=== PATIENT | female | born 1955 | race Caucasian/White ===

== ENCOUNTER 2018-05-11 11:21 | Emergency (ER) | payer MEDICARE, MEDICAID, SELFPAY ==
[2018-05-11 11:23] VITALS: BP 110/65; PULSE 69; RESP 18; TEMP 36.6; O2SAT 98; BMI 25.4
--- NOTE | 2018-05-11 11:42 | NURSING ---
NO LW OR POA
[2018-05-11] MEDS: Morphine 4 MG/ML Syringe IV (12:28)
--- NOTE | 2018-05-11 12:45 | ED.DCSUM_ITS ---
- ER Visit Summary Date of Service: 05/11/18 Chief Complaint: Dental pain History of Present Illness: The patient is a 62 F who sees Jacqui orss and Dr. Hammond. She reports that she went to [facility] approximately 4 days ago and was placed on amoxicillin. States that she has pain in her left maxillary first and second premolars that began 6 days ago. She describes it as an aching pain that is 10 out of 10 at worst and 8 at 10 currently. Is worsened by eating. It is minimally relieved by ice and ibuprofen. She reports that despite the amoxicillin the swelling has gotten worse and her face is much more swollen today. She denies any fever or chills. No nausea or vomiting. Physical Examination: Vitals: Stable. Afebrile. Mouth: No trismus. No edema of the floor of the mouth. Pain with percussion of left maxillary first and second premolars. There is minimal swelling of her gums superior to this. She does have significant soft tissue swelling of her maxilla. There is no focal abscess amenable to drainage. General: A&O x 3. NAD. Cardiovascular exam: Regular rate and rhythm, no murmur, rub or gallop. Respiratory exam: Clear to auscultation bilaterally. No wheezes or stridor. Abdominal exam: Soft, nontender, nondistended, normal bowel sounds. No peritoneal signs. Extremity: No clubbing, cyanosis, or edema. Emergency Department Course and Treatment: Patient had an IV placed. She was given a dose of morphine and clindamycin IV. She is resting comfortably. Treatment Plan: Patient will be switched to clindamycin. She will be placed on [place] for pain. Instructed to follow-up with her dentist as soon as possible. Return to the emergency department for any worsening symptoms. Disposition: To home in improved and stable condition. Impression: 1. Dental abscess. This note was generated with [employer] dictation software. It may contain incorrect words, spelling, and punctuation that were not noted in review of the chart prior to signing ED Disposition - Plan for ED Patient: Disposition: Home or Assisted Living Chief Complaint: Dental Instructions: Dental Abscess Prescriptions: Hydrocodone/Acetaminophen [[place] 5-325 Tablet] 1 - 2 each PO 4X/DAY PRN PRN 5 Days #20 tablet PRN Reason: Pain Clindamycin HCl [Cleocin] 300 mg PO Q6H #40 capsule Referrals: Dentist,Your [STAFF PHYSICIAN] - As soon as possible
[2018-05-11] MEDS: Clindamycin 900 MG/50 ML BAG 75 MG IV (13:03)
== END 2018-05-11 13:43 | disposition home or self-care (01) ==
LOC: ED 12:16
PROVIDERS: Emergency Provider Emergency Medicine; Family Provider Family Medicine; PCP Family Medicine
DX: K04.7 Periapical abscess without sinus (principal); I10 Essential (primary) hypertension; E78.00 Pure hypercholesterolemia, unspecified; K21.9 Gastro-esophageal reflux disease without esophagitis; E03.9 Hypothyroidism, unspecified; F32.9 Major depressive disorder, single episode, unspecified; F17.200 Nicotine dependence, unspecified, uncomplicated
CPT/HCPCS: 99283; A4216

== ENCOUNTER 2019-12-11 13:53 | Emergency (ER) | payer MEDICARE, MEDICAID, SELFPAY ==
[2019-12-11] VITALS (10 sets, daily range): BP systolic 94–139; BP diastolic 66–99; PULSE 66–79; RESP 12–26; TEMP 37.2; O2SAT 78–98; BMI 26.3
--- NOTE | 2019-12-11 14:18 | EKG12_ITS ---
Test Reason : GEN ILLNESS Blood Pressure : / mmHG Vent. Rate : 074 BPM Atrial Rate : 074 BPM P-R Int : 140 ms QRS Dur : 090 ms QT Int : 448 ms P-R-T Axes : 062 029 -20 degrees QTc Int : 497 ms Normal sinus rhythm Inferior infarct , age undetermined ST & T wave abnormality, consider anterior ischemia Abnormal ECG Confirmed by DERRICK LEROY, MICHELLE ([id number]), supervising film or videotape editor ANKUSH PULLIAM ([id number]) on 12/13/2019 11:27:20 AM Referred By: KARI Confirmed By:MICHELLE MEZA MD
--- NOTE | 2019-12-11 14:25 | ED.RN ---
RESPIRATORY AT BEDSIDE PLACING PATIENT ON BIPAP PER DR PIERCE ORDERS.
--- NOTE | 2019-12-11 14:26 | ED.VISSUMM ---
- ER Visit Summary Date of Service: 12/11/19 Chief Complaint: Shortness of breath, vomiting and diarrhea History of Present Illness: The patient is a 64 F presenting with shortness of breath. She states this started on Thursday. She states when she tries to walk she gets extremely short of breath and lightheaded. She denies chest pain or syncope. She states she has been having vomiting and diarrhea. Before she vomits she begins to have epigastric pain. She denies blood in her stool or emesis. She has no current abdominal pain. She also complains of fever and myalgias. She did receive a flu shot this year. She does not wear home O2. Per EMS her O2 sat was 70% on room air. Physical Examination: Vitals are stable. Patient is afebrile. Alert. pulse ox 83% on 6 L. HEENT exam is unremarkable. Neck is supple. Lungs are clear and equal bilaterally. Heart is regular rate and rhythm. Abdomen is soft nontender nondistended. No guarding or rebound Extremities are unremarkable. Skin is warm and dry. No focal neurologic deficit. Remainder of exam is unremarkable. Emergency Department Course and Treatment: She was started on BiPAP on arrival. CBC shows white count 14.1. Chemistries show glucose 126, BUN 41, creatinine 1.60. Troponin 0.231. D-dimer 11.79. She was given IV fluids. Chest x-ray shows no acute process. EKG is sinus rhythm rate of 74 with inferior T wave inversion which is changed from previous. Significant bilateral pulmonary embolism with probable right heart strain. 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 Given presence of pulmonary embolism, possibility of right to left cardiac shunt should be considered. Other causes of arterial thrombosis should also be considered. Patient was started on heparin drip. Discussed with ICU who recommends transfer to tertiary care center. Family requests [facility]. Patient will be transferred to [facility]. Disposition: Transfer [facility] Impression: Bilateral pulmonary embolism, SMA thrombus This note was generated with [employer] dictation software. It may contain incorrect words, spelling, and punctuation that were not noted in review of the chart prior to signing ED Disposition - Plan for ED Patient: Referrals: Wolfgang Hammond MD [Primary Care Provider] -
[2019-12-11 14:33] LABS: Absolute Lymphocyte Count 2.01 X10^3/uL (0.83-4.51); Absolute Neutrophil Count 11.2 X10^3/uL (2.0-7.7); Basophil# 0.07 X10^3/uL; Basophil% 0.5 % (0-1); Eosinophil# 0.07 X10^3/uL; Eosinophils% 0.5 % (0-5); Hematocrit 40.9 % (37-47); Hemoglobin 13.3 g/dL (12.0-15.0); Lymphocyte # 2.01 X10^3/ul (4.0); Lymphocyte % 14.3 % (19-41); Mean Corp Hgb Conc 32.5 g/dL (32-36); Mean Corpuscular Volume 92.3 fL (81-99); Monocyte# 0.68 X10^3/uL; Monocyte% 4.8 % (0-10); NRBC Flagged by Analyzer 0 % (0-5); Neutrophil # 11.21 X10^3/uL (2.7-7.7); Neutrophil % 79.5 % (47-70); Platelet Count 231 K/mm3 (150-450); RBC Distribution Width CV 14.7 % (11.6-14.6); RBC Distribution Width SD 49.2 fl (35.1-43.9); Red Blood Count 4.43 M/mm3 (4.2-5.4); White Blood Count 14.1 K/mm3 (4.4-11.0)
--- NOTE | 2019-12-11 14:33 | RAD_ITS ---
STUDY: X-RAY CHEST REASON FOR EXAM: Female, 64 years old. SOB, N/V/D TECHNIQUE: AP COMPARISON: 04/11/2013 FINDINGS: EKG leads project over the chest. Airspace opacity at the left upper lobe evident on the prior study has resolved. No airspace consolidation. There is no demonstrated pleural abnormality. Normal size heart. Normal mediastinum and rc. Normal visualized pulmonary arteries. There is atherosclerotic tortuosity of the aortic arch and descending thoracic aorta. No acute bony process. There is no demonstrated abnormality of the visualized soft tissue structures of the upper abdomen. RAD/Chest 1 View (Portable) IMPRESSION: No airspace consolidation or pleural effusion. Electronically Signed: Nakul Bee MD ([place]) at 14:53 EST , Service support ,
[2019-12-11 14:51] LABS: ALB/GLOB Ratio 0.9 RATIO (0.9-2.4); AST(SGOT) 14 U/L (15-37); Alanine Aminotransfer ALT/SGPT 22 U/L (13-56); Albumin, Serum 3.6 g/dL (3.2-5.0); Alkaline Phosphatase 101 U/L (45-117); Anion Gap 9 (5-15); BUN 41 mg/dL (7-18); BUN/Creat Ratio 25.6 RATIO (10-20); Calcium,Total 9.3 mg/dL (8.5-10.1); Chloride 104 mmol/L (98-107); EST Glomerular Filtration Rate 34 mL/min (>60); Est Glom Filt Rate - Afr Amer 41 mL/min (>60); Estimated Creatinine Clearance 27.35 ml/min; Globulin 4.2 g/dL (2.2-4.2); Glucose 126 mg/dL (74-106); Lipase 55 U/L (73-393); Potassium 4.1 mmol/L (3.5-5.1); Protein, Total 7.8 g/dL (6.4-8.2); Sodium Level 139 mmol/L (136-145)
[2019-12-11 14:56] LABS: Base Excess 2 mmol/L (-2 to +2); Blood Gas Specimen Type ART; EPAP 6; FI02 90; IPAP 12; PO2 64 mmHG (75-100); RR 12; SITE L Brachial; SO2 95 % (95-99); Time Given 1448; Total Carbon Dioxide 25 mmol/L; pCO2 27.8 mmHg (35-45); pH 7.54 (7.35-7.45)
[2019-12-11 15:01] LABS: D-Dimer Quantitative (DVT/PE) 11.79 FEU/ug/m (0.27-0.49)
--- NOTE | 2019-12-11 15:07 | CT_ITS ---
We are attempting to reach an attending provider to discuss findings. An addendum with communication details will be sent when the communication is complete. STUDY: CTA CHEST REASON FOR EXAM: Female, 64 years old. N/V/D, ABD PAIN,SHORT OF BREATH,LIGHTHEADED RADIATION DOSAGE (If Supplied By Facility): CTDIvol = ( 6.86 ) mGy, DLP = ( 209.14 ) mGycm TECHNIQUE: The examination was performed with the intravenous administration of 100CC ISOVUE 370. Post-processing of the angiographic images was performed, with multiplanar reformation and 3D reconstruction. Individualized dose optimization techniques were used for this CT. COMPARISON: None. FINDINGS: There are large filling defects in the bilateral pulmonary arteries extending into multiple segmental pulmonary branches. Greater degree of thrombus in the left more than right pulmonary arteries. Normal enhancement of the bilateral peripheral pulmonary arteries. There is no demonstrated pulmonary embolism. Atherosclerosis of the thoracic aorta identified. In the upper abdominal aorta, there is a filling defect at the level of the superior mesenteric artery (image 16 series 2) extending into the superior mesenteric artery which is not clearly opacified on any of the provided images. The thrombus is well seen (U-shaped configuration) in the abdominal aorta on sagittal image 163. There is no demonstrated aortic dissection. Right ventricle is dilated as compared to the left (RV: LV ratio greater than 1.0) with reflux of contrast into the hepatic veins compatible with right heart strain. Normal mediastinum. Normal hilar regions. Normal visualized trachea and bronchi. The lungs are well expanded. Normal pulmonary parenchyma. Normal pleura. Normal chest wall structures. There are degenerative changes of thoracic spine. Regional cortical atrophy left kidney with small parenchymal calcification on image 3 of series 2. Adrenal glands are not focally enlarged. CT/CTA Chest W/WO Contrast IMPRESSION: 1. Significant bilateral pulmonary embolism with probable right heart strain. 2. 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 Given presence of pulmonary embolism, possibility of right to left cardiac shunt should be considered. Other causes of arterial thrombosis should also be considered. Electronically Signed: Nakul Bee MD (Brooks) at 16:13 EST , Service support ,
[2019-12-11] MEDS: 0.9% Normal Saline 1,000 ML 999 ML IV (15:18)
[2019-12-11] MEDS: Ondansetron 4 MG/2 ML Vial IV (15:43)
[2019-12-11] MEDS: HEPARIN/D5w 25,000 UNITS 25,000 UNITS/250 ML IV.SOLN. 10 UNITS IV (16:51)
[2019-12-11] MEDS: Heparin Injection (Vial) 5,000 UNIT/ML VIAL 4500 UNIT IV (16:51)
[2019-12-11 16:59] LABS: Lactic Acid 1.7 mmol/L (0.4-1.9)
--- NOTE | 2019-12-11 17:08 | NURSING ---
CALLED [facility] FOR TRANSFER.
--- NOTE | 2019-12-11 17:20 | NURSING ---
FAXED FACESHEET AND CT REPORT
--- NOTE | 2019-12-11 17:50 | NURSING ---
[facility] ACCEPTED ROOM [id number] NURSE TO NURSE [phone]
--- NOTE | 2019-12-11 17:59 | NURSING ---
CALLED [facility]. ETA IS 1 HR
--- NOTE | 2019-12-11 18:17 | NURSING ---
[facility], NO WAY TO TRANSPORT PATIENT WITH BIPAP CALLED [facility], CREW IS IN [place]
--- NOTE | 2019-12-11 19:00 | ED.RN ---
TRANSPORT AT BEDSIDE. REPORT GIVEN. DENIES QUESTIONS. PT SWITCHED OVER TO TRANSPORTS BIPAP AND IV PUMP. CARE ASSUMED BY TRANSPORT TEAM AT THIS TIME.
== END 2019-12-11 20:18 | disposition short-term general hospital (02) ==
LOC: ED 14:56
PROVIDERS: Emergency Provider Emergency Medicine; PCP Family Medicine
DX: I26.99 Other pulmonary embolism without acute cor pulmonale (principal); K55.069 Acute infarction of intestine, part and extent unspecified; I11.0 Hypertensive heart disease with heart failure; I50.9 Heart failure, unspecified; K21.9 Gastro-esophageal reflux disease without esophagitis; Z72.0 Tobacco use; E78.00 Pure hypercholesterolemia, unspecified; Z79.899 Other long term (current) drug therapy
CPT/HCPCS: 36600; 71045; 71275; 80053; 82803; 83605; 83690; 84484; 85025; 85379; 87804; 93005; 94002; 96361; 96365; 96366; 96375; 99285; J7030; Q9967; A4216; J2405

== ENCOUNTER 2019-12-21 18:43 | Inpatient (IN) | payer MEDICARE, MEDICAID, SELFPAY ==
[2019-12-11 13:53] VITALS: BMI 26.3
[2019-12-21 18:56] VITALS: BP 148/95; PULSE 77; RESP 20; TEMP 37.1; O2SAT 95
--- NOTE | 2019-12-21 21:03 | HP.PCM_ITS ---
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 (5) Abdominal aorta thrombosis Status: Acute (6) Kidney stone Status: Chronic (7) DVT (deep venous thrombosis) Status: Acute (8) Patent foramen ovale Status: Chronic (9) Gastritis Status: Chronic (10) Incontinence of urine Status: Chronic (11) NSTEMI (non-ST elevated myocardial infarction) Status: Acute (12) Osteoporosis Status: Chronic (13) Migraine Status: Chronic (14) Rheumatoid arthritis Status: Chronic (15) Diabetes mellitus Status: Chronic (16) Hypothyroidism Status: Chronic (17) HTN (hypertension) Status: Chronic (18) HLD (hyperlipidemia) Status: Chronic (19) GERD (gastroesophageal reflux disease) Status: Chronic History of Present Illness Date of Admission: 12/21/19 Chief Complaint: Here for rehabilitation, strengthening, prior to discharge home alone. The patient is a 64 year old Female with below past medical history presented to [facility] Emergency Department 12/11/2019 with shortness of breath, vomiting, diarrhea. 12/11/2019 EKG normal sinus rhythm, inferior infarct, age undetermined, ST&T wave abnormality, consider inferior ischemia. 12/11/2019 Chest X-ray negative. 12/11/2019 CTA chest bilateral pulmonary embolism, right heart strain, upper abdominal aorta/SMA thrombosis. Shortness of breath, extremely short of breath, lightheaded with walking. Vomiting, diarrhea, epigastric pain, UTD flushot. BiPAP applied. WBC 14.1, Glucose 126, BUN 41, Cr 1.6, Troponin 0.231. D-dimer 11.79. Heparin drip started. Transfer to [facility]. 12/12/2019 Admit to [facility]. tPA given, then heparin drip. Doppler positive for DVT left lower extremity. Echo shows PFO. 12/16/2019 Hematology recommended lifelong oral anticoagulation with Xarelto, Eliquis, or coumadin. Erratic INR with coumadin previously. Patient had prior PE associated with kidney stone surgery 2010. 12/17/2019 Vascular surgery recommended continuing anticoagulation, No intervention required. No IVC filtered needed as patient can be orally anticoagulated. Ok to transition to Eliquis 5MG twice daily or Xarelto 15MG twice daily x 2 weeks, then 20MG daily. 12/21/2019 Admit to TCU with debility, here for rehabilitation, strengthening, prior to discharge home alone. Past Medical History Past Medical History (Chronic Problems): Chronic Problems Kidney stone (Chronic) Patent foramen ovale (Chronic) Gastritis (Chronic) Incontinence of urine (Chronic) Osteoporosis (Chronic) Migraine (Chronic) Rheumatoid arthritis (Chronic) Diabetes mellitus (Chronic) Pulmonary emboli (Chronic) Diastolic CHF (Chronic) Hypoxia (Chronic) Hypothyroidism (Chronic) HTN (hypertension) (Chronic) HLD (hyperlipidemia) (Chronic) GERD (gastroesophageal reflux disease) (Chronic) Allergies azithromycin [From Zithromax] Allergy (Verified 05/11/18 11:24) Hives Sulfa (Sulfonamide Antibiotics) Allergy (Verified 05/11/18 11:24) Hives Home Medications: Ambulatory Orders Medication Instructions Recorded Alendronate Sodium [Fosamax] 70 mg PO Q7D@0700 12/07/13 Benzonatate [Tessalon Perle] 100 mg PO TID 12/07/13 Biotin 10 mg PO DAILY 12/07/13 Levothyroxine [Synthroid] 100 mcg PO DAILY 12/07/13 Lisinopril [Zestril] 5 mg PO DAILY 12/07/13 Loratadine [Claritin] 10 mg PO DAILY 12/07/13 Metoprolol(XL)Succ [Toprol Xl] 25 mg PO DAILY 12/07/13 Multivitamins,Therapeutic 1 tablet PO DAILY 12/07/13 [Multivitamin] Nystatin/Triamcin Cream [Mycolog] 1 applic TOPICAL BID 12/07/13 Omeprazole [Prilosec] 40 mg PO DAILY 12/07/13 Pravastatin [Pravachol] 80 mg PO QHS 12/07/13 Gabapentin [Neurontin] 100 mg PO TIDCM 05/11/18 Fluticasone 0.05% [Flonase Nasal 2 spray NASAL DAILY 12/11/19 [place]] Oxybutynin Chloride [Oxybutynin 15 mg PO DAILY 12/11/19 Chloride ER] Venlafaxine HCl ER 150 mg PO DAILY 12/11/19 Apixaban [Eliquis] 5 mg PO BID 12/21/19 Budesonide [Entocort EC] 6 mg PO DAILY 12/21/19 Surgical History: appendectomy, cataract - Bilateral., hysterectomy - Total Abdominal., tonsillectomy, - - Breast biopsy, lithotripsy, hemorrhoidectomy, right shoulder, left ureteral stent, Bilateral carpal tunnel release, Bladder surgery. 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 Lives: Alone Smoking Status: Current every day smoker Tobacco Use: Cigarettes Alcohol: None Drugs: None - *Family History Maternal History Items: Cancer Sibling History Items: Cancer, Heart Disease Review of Systems Constitutional: Denies: Chills, Fever, Weight Change HEENT: Denies: Head Aches, Sinus Congestion, Sinus Drainage Cardiovascular: Denies: Chest Pain, Palpitations Respiratory: Denies: Cough, Shortness of breath at rest, Sputum production Gastrointestinal: Denies: Abdominal Pain, Nausea, Vomiting Genitourinary: Denies: Dysuria Musculoskeletal: Denies: Joint Pain, Joint Tenderness Skin: Denies: Rash, Wounds Neurological: Denies: Numbness, Tingling, Focal weakness Psychiatric: Denies: Anxiety, Depression, Homicidal Ideations, Suicidal Ideations Hematologic/ Lymphatic: Denies: Easy Bruising, Easy Bleeding VTE Information - Inpt Only VTE Present on Admission: No VTE Mechan Device Prophylaxis: Knee High ROEGR Hose VTE Pharm Prophylaxis ordered?: No Reason prophylaxis not ordered:: Treatment Not Indicated 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) DVT (deep venous thrombosis) (Acute) NSTEMI (non-ST elevated myocardial infarction) (Acute) - Physical Exam Vitals/I&O's: Vital Signs Temp Pulse Resp BP Pulse Ox 98.7 F 77 20 H 148/95 H 95 12/21/19 18:56 12/21/19 18:56 12/21/19 18:56 12/21/19 18:56 12/21/19 18:56 Oxygen Delivery Method Room Air Body Mass Index (BMI) 26.3 General: Alert, Oriented x3, Cooperative HEENT: Atraumatic, PERRLA, EOMI, Normocephalic Neck: Supple, No JVD, Negative Carotid Bruits Lungs: Clear to auscultation, Normal air movement Cardiovascular: Regular rate, No murmurs Abdomen: Bowel Sounds Present, Soft, Non Tender Extremities: No edema, Capillary Refill Less than 3 Seconds Skin: No rashes, No breakdown Musculoskeletal: No Tenderness to Palpation of Joints or Extremities Neurological: Cranial nerves II-XII grossly intact Psych/Mental Status: Normal Affect, Appropriate Current Medications Alendronate Sodium (Fosamax) 70 mg PO Q7D@0700 [facility] Apixaban (Eliquis) 5 mg PO BID [facility] Benzonatate (Tessalon Perle) 100 mg PO TID [facility] Budesonide (Budesonide Ec) 6 mg PO DAILY [facility] Fluticasone Propionate (Flonase Nasal [place]) 2 spray NASAL DAILY [facility] Gabapentin (Neurontin) 100 mg PO TIDCM [facility] Stop: 03/21/20 07:46 Levothyroxine Sodium (Synthroid) 100 mcg PO DAILY [facility] Lisinopril (Zestril) 5 mg PO DAILY [facility] Loratadine (Claritin) 10 mg PO DAILY [facility] Metoprolol Succinate (Toprol Xl (Beta Sola)) 25 mg PO DAILY [facility] Multivitamins ([facility]ivitamin) [facility] Nystatin/Triamcinolone Acetonide (Mycolog) 1 applic TOPICAL BID [facility]; Protocol Pantoprazole Sodium (Protonix) 40 mg PO DAILY [facility] Pravastatin Sodium (Pravachol) 80 mg PO QHS [facility] Tolterodine Tartrate (Detrol La) 4 mg PO DAILY [facility] Tuberculin PPD (Tubersol, Aplisol, Ppd) 5 tu ID X1 ONE Stop: 12/22/19 10:01 Tuberculin PPD (Tubersol, Aplisol, Ppd) 5 tu ID X1 ONE Stop: 12/29/19 10:01 Venlafaxine HCl (Effexor Xr) 150 mg PO DAILY [facility] Assessment/Plan All Active Problems Debility (Acute) Acute respiratory failure (Acute) Bilateral pulmonary embolism (Acute) 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 * Debility - PT/OT. * Pain - Tylenol 1000MG Q6H PRN pain (1-10). * Bowel - Miralax 17GM daily PRN, Senna/colace 1 tablet BID PRN, Dulcolax 10MG daily PRN. * Adult immunization - Administer Prevnar 13, Pneumovax 23, Fluzone as appropriate. * DVT prophylaxis - Not necessary, already anticoagulated. * Osteoporosis - Alendronate 70MG every 7 days. * Pulmonary Embolism/Left lower extremity DVT/SMA thrombosis - Eliquis 5MG twice daily indefinitely. * Cough - Tessalon Perles 100MG TID. * Colitis - Budesonide 6MG daily. * Allergic Rhinitis - Loratadine 10MG daily, Flonase 2 sprays nasal daily. * Neuropathic pain - Gabapentin 100MG TID thru 03/21/2020. * Hypothyroidism - Levothyroxine 100MCG daily. * Hypertension - Metoprolol succinate 25MG daily, Lisinopril 5MG daily. * Nutrition - MVI daily. * Tinea Corporis - Nystatin cream topical BID. * GERD - Pantoprazole 40MG daily. * Hyperlipidemia - Pravastatin 80MG QHS. * Overactive Bladder - Tolterodine 4MG daily. * Depression - Venlafaxine XR 150MG daily.
[2019-12-21] MEDS: Pravastatin 80 MG Tablet PO (21:44)
[2019-12-21] MEDS: Benzonatate 100 MG Capsule PO (21:44)
[2019-12-21 21:50] VITALS: BMI 26.6
[2019-12-21 21:57] VITALS: BMI 26.6
[2019-12-21 22:08] VITALS: PULSE 71; O2SAT 98
[2019-12-21] MEDS: Acetaminophen 500 MG Tablet 1000 MG PO (22:31)
[2019-12-22 05:45] LABS: Absolute Lymphocyte Count 2.12 X10^3/uL (0.83-4.51); Absolute Neutrophil Count 4.8 X10^3/uL (2.0-7.7); Basophil# 0.06 X10^3/uL; Basophil% 0.8 % (0-1); Eosinophil# 0.23 X10^3/uL; Eosinophils% 2.9 % (0-5); Hematocrit 32.5 % (37-47); Hemoglobin 10.3 g/dL (12.0-15.0); Lymphocyte # 2.12 X10^3/ul (4.0); Mean Corp Hgb Conc 31.7 g/dL (32-36); Mean Corpuscular Hgb 30.2 pg (27.0-32.0); Mean Corpuscular Volume 95.3 fL (81-99); Mean Platelet Vol. 9.2 fl (6.2-12.0); Monocyte# 0.48 X10^3/uL; Monocyte% 6.1 % (0-10); NRBC Flagged by Analyzer 0 % (0-5); Neutrophil # 4.84 X10^3/uL (2.7-7.7); Neutrophil % 61.5 % (47-70); Platelet Count 376 K/mm3 (150-450); RBC Distribution Width CV 14.7 % (11.6-14.6); RBC Distribution Width SD 50.3 fl (35.1-43.9); Red Blood Count 3.41 M/mm3 (4.2-5.4); White Blood Count 7.9 K/mm3 (4.4-11.0)
[2019-12-22 06:11] VITALS: BP 154/82; PULSE 69
[2019-12-22] MEDS: Tolterodine Tartrate 4 MG CAP.SA PO (06:11)
[2019-12-22] MEDS: APIXABAN 5 MG TABLET PO ×2 (06:11→17:40)
[2019-12-22] MEDS: Metoprolol(XL)Succ 25 MG Tablet PO (06:11)
[2019-12-22] MEDS: Loratadine 10 MG Tablet PO (06:11)
[2019-12-22] MEDS: Pantoprazole Sodium 40 MG Tablet PO (06:11)
[2019-12-22] MEDS: Budesonide 3 MG CAPSULE.EC 6 MG PO (06:11)
[2019-12-22] MEDS: Venlafaxine XR 150 MG Capsule PO (06:11)
[2019-12-22] MEDS: Lisinopril 5 MG Tablet PO (06:11)
[2019-12-22 06:13] LABS: Anion Gap 4 (5-15); BUN 12 mg/dL (7-18); BUN/Creat Ratio 11.1 RATIO (10-20); Calcium,Total 9.3 mg/dL (8.5-10.1); Chloride 109 mmol/L (98-107); Creatinine, Serum 1.08 mg/dL (0.55-1.02); EST Glomerular Filtration Rate 54 mL/min (>60); Est Glom Filt Rate - Afr Amer 65 mL/min (>60); Estimated Creatinine Clearance 40.53 ml/min; Glucose 94 mg/dL (74-106); Sodium Level 143 mmol/L (136-145)
[2019-12-22] MEDS: Levothyroxine 100 MCG Tablet PO (06:13)
[2019-12-22 06:36] LABS: Bedside Glucose 90 mg/dL (70-110)
[2019-12-22] MEDS: Gabapentin 100 MG Capsule PO ×3 (08:51→17:40)
[2019-12-22] MEDS: Multivitamins,Therapeutic Tablet 1 TABLET PO (08:51)
--- NOTE | 2019-12-22 13:15 | PCM.PN.RX ---
<Nila Hernández M - Last Filed: 12/22/19 13:15> Progress Note - Pharmacy Subjective: TCU ADMISSION Objective: Allergies azithromycin [From Zithromax] Allergy (Verified 05/11/18 11:24) Hives Sulfa (Sulfonamide Antibiotics) Allergy (Verified 05/11/18 11:24) Hives Current Medications Generic Name Dose Route Start Last Admin Trade Name Freq PRN Reason Stop Dose Admin Acetaminophen 1,000 mg 12/21/19 21:27 12/21/19 22:31 Tylenol PO 1,000 mg Q6H PRN PRN Administration Pain Score 1-1010 Alendronate Sodium 70 mg 12/23/19 07:00 Fosamax PO Q7D@0700 SUDHA Apixaban 5 mg 12/22/19 06:00 12/22/19 06:11 Eliquis PO 5 mg BID SUDHA Administration Benzonatate 100 mg 12/22/19 08:21 Tessalon Perle PO TID PRN COUGH Bisacodyl 10 mg 12/21/19 21:28 Dulcolax PO DAILY PRN PRN Constipation Budesonide 6 mg 12/22/19 06:00 12/22/19 06:11 Budesonide Ec PO 6 mg DAILY SUDHA Administration Fluticasone Propionate 2 spray 12/22/19 08:21 Flonase Nasal [place] NASAL DAILY PRN COUGH Gabapentin 100 mg 12/22/19 07:45 12/22/19 08:51 Neurontin PO 03/21/20 07:46 100 mg TIDCM SUDHA Administration Levothyroxine Sodium 100 mcg 12/22/19 06:00 12/22/19 06:13 Synthroid PO 100 mcg DAILY SUDHA Administration Lisinopril 5 mg 12/22/19 06:00 12/22/19 06:11 Zestril PO 5 mg DAILY SUDHA Administration Loratadine 10 mg 12/22/19 06:00 12/22/19 06:11 Claritin PO 10 mg DAILY SUDHA Administration Metoprolol Succinate 25 mg 12/22/19 06:00 12/22/19 06:11 Toprol Xl (Beta Sola) PO 25 mg DAILY SUDHA Administration Multivitamins 1 tablet 12/22/19 08:00 12/22/19 08:51 Multivitamin PO 1 tablet DAILYCM SUDHA Administration Nutritional Formula (Lactose Free) 120 ml 12/22/19 12:00 Glucerna Shake PO 4X/DAY SUDHA Pantoprazole Sodium 40 mg 12/22/19 06:00 12/22/19 06:11 Protonix PO 40 mg DAILY SUDHA Administration Polyethylene Glycol 17 gm 12/21/19 21:28 Miralax PO DAILY PRN PRN Constipation Pravastatin Sodium 80 mg 12/21/19 22:00 12/21/19 21:44 Pravachol PO 80 mg QHS SUDHA Administration Senna/Docusate Sodium 1 tablet 12/21/19 21:28 Senokot-S, Lalitha-Colace PO BID PRN PRN Constipation Tolterodine Tartrate 4 mg 12/22/19 06:00 12/22/19 06:11 Detrol La PO 4 mg DAILY SUDHA Administration Tuberculin PPD 5 tu 12/29/19 10:00 Tubersol, Aplisol, Ppd ID 12/29/19 10:01 X1 ONE Venlafaxine HCl 150 mg 12/22/19 06:00 12/22/19 06:11 Effexor Xr PO 150 mg DAILY SUDHA Administration Problem List Debility (Acute) Acute respiratory failure (Acute) Bilateral pulmonary embolism (Acute) 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) Kidney stone (Chronic) DVT (deep venous thrombosis) (Acute) Patent foramen ovale (Chronic) Gastritis (Chronic) Incontinence of urine (Chronic) NSTEMI (non-ST elevated myocardial infarction) (Acute) Osteoporosis (Chronic) Migraine (Chronic) Rheumatoid arthritis (Chronic) Diabetes mellitus (Chronic) Vital Signs Temp Pulse Resp BP Pulse Ox 98.7 F 69 20 H 154/82 H 98 12/21/19 18:56 12/22/19 06:11 12/21/19 18:56 12/22/19 06:11 12/21/19 22:08 Oxygen Delivery Method Room Air Weight: 66 kg Body Mass Index (BMI) 26.6 Sodium 143 mmol/L (136-145) 12/22/19 05:20 Potassium 4.0 mmol/L (3.5-5.1) 12/22/19 05:20 Chloride 109 mmol/L (98-107) H 12/22/19 05:20 Carbon Dioxide 30.0 mmol/L (21.0-32.0) 12/22/19 05:20 Anion Gap 4 (5-15) L 12/22/19 05:20 BUN 12 mg/dL (7-18) 12/22/19 05:20 Creatinine 1.08 mg/dL (0.55-1.02) H 12/22/19 05:20 Est GFR (MDRD) Af Amer 65 mL/min (>60) 12/22/19 05:20 Est GFR (MDRD) Non-Af 54 mL/min (>60) L 12/22/19 05:20 BUN/Creatinine Ratio 11.1 RATIO (10-20) 12/22/19 05:20 Glucose 94 mg/dL (74-106) 12/22/19 05:20 Assessment/Plan: 1. Pain: Tylenol 1000mg PO Q6h PRN Pain 1-09/01. Please continue to monitor for increased/decreased pain, PRN usage 2. PE/DVT: Eliquis 5mg PO BID. Please continue to monitor for S/S bleeding/bruising, as well as signs of recurrent DVT/PE/ or stroke 3. Osteoporosis: Fosamax 70mg PO once weekly. When administering, make sure patient takes first thing in the morning on an empty stomach. Do not let the patient lay down for 30-60 minutes after administration, patient to remain upright. 4. Hypertension: Metoprolol XL 25mg PO Daily, Lisinopril 5mg PO Daily. Please continue to monitor BP, pulse, electrolytes 5. Hypothyroidism: Synthroid 100mcg PO Daily. Please continue to monitor for S/S hyper/hypothyroidism. Consider ordering thyroid labs at least annually or sooner if clinically indicated 6. Neuropathic pain: Gabapentin 100mg PO TID through 03/21/20. Please continue to monitor for improvement in symptoms/ medication effectiveness 7. GERD: Protonix 40mg PO Daily. Please continue to monitor for resolution/improvement in GERD symptoms 8. Colitis: Budesonide 6mg PO Daily. Please continue to monitor for ongoing colitis symptoms, improvement in condition 9. Hyperlipidemia: Pravastatin 80mg PO QHS. Please consider ordering a lipid panel annually or sooner if clinically indicated 10. Allergic rhinitis/cough: Tessalon perles 100mg PO TID PRN, Claritin 10mg PO Daily, Flonase 2 sprays nasally daily PRN 11. Overactive bladder: Detrol LA 4mg PO Daily. Please continue to monitor for improvement in OAB symptoms 12. General Wellness: Multivitamin 1 tab PO daily. Please continue to monitor Psychotropic Medications: 13. Depression: Effexor XR 150mg PO daily. Please consider a GDR by 05/2020 if clinically appropriate Unnecessary Medications: None Bowel Regimen: Bisacodyl 10mg PO Daily PRN, Miralax 17g PO daily PRN, Senna/Docusate 1 tab PO BID PRN. Please continue to monitor for PRN usage, increased/decreased bowel movements Date of Note:: 12/22/19 - Provider Comments Provider responsibility: Provider responsible to enter orders to implement recommendations <James Moeller Chi - Last Filed: 12/22/19 15:54> Progress Note - Pharmacy Subjective: [] Objective: Allergies azithromycin [From Zithromax] Allergy (Verified 05/11/18 11:24) Hives Sulfa (Sulfonamide Antibiotics) Allergy (Verified 05/11/18 11:24) Hives Current Medications Generic Name Dose Route Start Last Admin Trade Name Freq PRN Reason Stop Dose Admin Acetaminophen 1,000 mg 12/21/19 21:27 12/21/19 22:31 Tylenol PO 1,000 mg Q6H PRN PRN Administration Pain Score 1-10/10 Alendronate Sodium 70 mg 12/23/19 07:00 Fosamax PO Q7D@0700 SUDHA Apixaban 5 mg 12/22/19 06:00 12/22/19 06:11 Eliquis PO 5 mg BID SUDHA Administration Benzonatate 100 mg 12/22/19 08:21 Tessalon Perle PO TID PRN COUGH Bisacodyl 10 mg 12/21/19 21:28 Dulcolax PO DAILY PRN PRN Constipation Budesonide 6 mg 12/22/19 06:00 12/22/19 06:11 Budesonide Ec PO 6 mg DAILY SUDHA Administration Fluticasone Propionate 2 spray 12/22/19 08:21 Flonase Nasal [place] NASAL DAILY PRN COUGH Gabapentin 100 mg 12/22/19 07:45 12/22/19 14:20 Neurontin PO 03/21/20 07:46 100 mg TIDCM SUDHA Administration Levothyroxine Sodium 100 mcg 12/22/19 06:00 12/22/19 06:13 Synthroid PO 100 mcg DAILY SUDHA Administration Lisinopril 5 mg 12/22/19 06:00 12/22/19 06:11 Zestril PO 5 mg DAILY SUDHA Administration Loratadine 10 mg 12/22/19 06:00 12/22/19 06:11 Claritin PO 10 mg DAILY SUDHA Administration Metoprolol Succinate 25 mg 12/22/19 06:00 12/22/19 06:11 Toprol Xl (Beta Sola) PO 25 mg DAILY SUDHA Administration Multivitamins 1 tablet 12/22/19 08:00 12/22/19 08:51 Multivitamin PO 1 tablet DAILYCM [facility] Administration Nutritional Formula (Lactose Free) 120 ml 12/22/19 12:00 12/22/19 14:20 Glucerna Shake PO 120 ml 4X/DAY SUDHA Administration Pantoprazole Sodium 40 mg 12/22/19 06:00 12/22/19 06:11 Protonix PO 40 mg DAILY [facility] Administration Polyethylene Glycol 17 gm 12/21/19 21:28 Miralax PO DAILY PRN PRN Constipation Pravastatin Sodium 80 mg 12/21/19 22:00 12/21/19 21:44 Pravachol PO 80 mg QHS [facility] Administration Senna/Docusate Sodium 1 tablet 12/21/19 21:28 Senokot-S, Lalitha-Colace PO BID PRN PRN Constipation Tolterodine Tartrate 4 mg 12/22/19 06:00 12/22/19 06:11 Detrol La PO 4 mg DAILY SUDHA Administration Tuberculin PPD 5 tu 12/29/19 10:00 Tubersol, Aplisol, Ppd ID 12/29/19 10:01 X1 ONE Venlafaxine HCl 150 mg 12/22/19 06:00 12/22/19 06:11 Effexor Xr PO 150 mg DAILY SUDHA Administration Problem List Debility (Acute) Acute respiratory failure (Acute) Bilateral pulmonary embolism (Acute) 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) Kidney stone (Chronic) DVT (deep venous thrombosis) (Acute) Patent foramen ovale (Chronic) Gastritis (Chronic) Incontinence of urine (Chronic) NSTEMI (non-ST elevated myocardial infarction) (Acute) Osteoporosis (Chronic) Migraine (Chronic) Rheumatoid arthritis (Chronic) Diabetes mellitus (Chronic) Vital Signs Temp Pulse Resp BP Pulse Ox 97.7 F L 66 18 109/56 L 98 12/22/19 15:33 12/22/19 15:33 12/22/19 15:33 12/22/19 15:33 12/22/19 15:33 Oxygen Delivery Method Room Air Weight: 66 kg Body Mass Index (BMI) 26.6 Sodium 143 mmol/L (136-145) 12/22/19 05:20 Potassium 4.0 mmol/L (3.5-5.1) 12/22/19 05:20 Chloride 109 mmol/L (98-107) H 12/22/19 05:20 Carbon Dioxide 30.0 mmol/L (21.0-32.0) 12/22/19 05:20 Anion Gap 4 (5-15) L 12/22/19 05:20 BUN 12 mg/dL (7-18) 12/22/19 05:20 Creatinine 1.08 mg/dL (0.55-1.02) H 12/22/19 05:20 Est GFR (MDRD) Af Amer 65 mL/min (>60) 12/22/19 05:20 Est GFR (MDRD) Non-Af 54 mL/min (>60) L 12/22/19 05:20 BUN/Creatinine Ratio 11.1 RATIO (10-20) 12/22/19 05:20 Glucose 94 mg/dL (74-106) 12/22/19 05:20 Assessment/Plan: Psychotropic Medications: Unnecessary Medications: Bowel Regimen: - Provider Comments Provider responsibility: Provider responsible to enter orders to implement recommendations Provider Comments to Recommendations by Pharmacy: Agree
[2019-12-22] MEDS: Glucerna Shake 120 ML LIQUID PO ×3 (14:20→21:20)
[2019-12-22] MEDS: Tuberculin,Purif.prot.deriv. 50 TU/ML Vial 5 ML ID (14:20)
[2019-12-22 15:33] VITALS: BP 109/56; PULSE 66; RESP 18; TEMP 36.5; O2SAT 98
--- NOTE | 2019-12-22 16:42 | CASEMGMT ---
Social Work Reviewed and agreed with social work international project manager documentation on this date. Yue Tavares, CORDWOOD CUTTER HELPER ENTRY LEVEL MANAGEMENT
[2019-12-22] MEDS: Pravastatin 80 MG Tablet PO (21:21)
[2019-12-22] MEDS: Doxepin Hcl 25 MG Capsule PO (21:22)
--- NOTE | 2019-12-22 22:34 | PCA ---
Per RESEARCH LABORATORY TECHNICIAN Gato patient told her that she was all ready for the night and got her teeth brushed and was washed up.
[2019-12-23] MEDS: Glucerna Shake 120 ML LIQUID PO ×4 (05:47→20:16)
[2019-12-23 05:48] VITALS: BP 122/62; PULSE 64
[2019-12-23] MEDS: Lisinopril 5 MG Tablet PO (05:48)
[2019-12-23] MEDS: Alendronate Sodium 70 MG Tablet PO (05:48)
[2019-12-23] MEDS: Levothyroxine 100 MCG Tablet PO (05:48)
[2019-12-23] MEDS: Pantoprazole Sodium 40 MG Tablet PO (05:48)
[2019-12-23] MEDS: Loratadine 10 MG Tablet PO (05:48)
[2019-12-23] MEDS: Budesonide 3 MG CAPSULE.EC 6 MG PO (05:48)
[2019-12-23] MEDS: Tolterodine Tartrate 4 MG CAP.SA PO (05:48)
[2019-12-23] MEDS: Venlafaxine XR 150 MG Capsule PO (05:48)
[2019-12-23] MEDS: APIXABAN 5 MG TABLET PO ×2 (05:48→17:15)
[2019-12-23] MEDS: Metoprolol(XL)Succ 25 MG Tablet PO (05:48)
[2019-12-23 06:31] LABS: Bedside Glucose 99 mg/dL (70-110)
[2019-12-23] MEDS: Gabapentin 100 MG Capsule PO ×3 (08:33→17:15)
[2019-12-23] MEDS: Multivitamins,Therapeutic Tablet 1 TABLET PO (08:33)
[2019-12-23 15:23] VITALS: BP 127/68; PULSE 64; RESP 18; TEMP 37.2; O2SAT 97
[2019-12-23] MEDS: Doxepin Hcl 25 MG Capsule PO (20:16)
[2019-12-23] MEDS: Pravastatin 80 MG Tablet PO (20:16)
[2019-12-24 05:28] VITALS: BP 127/71; PULSE 67
[2019-12-24] MEDS: Glucerna Shake 120 ML LIQUID PO ×4 (05:28→20:35)
[2019-12-24] MEDS: Budesonide 3 MG CAPSULE.EC 6 MG PO (05:28)
[2019-12-24] MEDS: Venlafaxine XR 150 MG Capsule PO (05:28)
[2019-12-24] MEDS: APIXABAN 5 MG TABLET PO ×2 (05:28→16:45)
[2019-12-24] MEDS: Metoprolol(XL)Succ 25 MG Tablet PO (05:28)
[2019-12-24] MEDS: Levothyroxine 100 MCG Tablet PO (05:29)
[2019-12-24] MEDS: Lisinopril 5 MG Tablet PO (05:29)
[2019-12-24] MEDS: Pantoprazole Sodium 40 MG Tablet PO (05:29)
[2019-12-24] MEDS: Loratadine 10 MG Tablet PO (05:29)
[2019-12-24] MEDS: Tolterodine Tartrate 4 MG CAP.SA PO (05:29)
[2019-12-24 06:15] LABS: Bedside Glucose 107 mg/dL (70-110)
[2019-12-24] MEDS: Gabapentin 100 MG Capsule PO ×3 (07:53→16:45)
[2019-12-24] MEDS: Multivitamins,Therapeutic Tablet 1 TABLET PO (07:53)
[2019-12-24 15:19] VITALS: BP 125/66; PULSE 65; RESP 16; TEMP 36.9; O2SAT 95
[2019-12-24] MEDS: Doxepin Hcl 25 MG Capsule PO (20:35)
[2019-12-24] MEDS: Pravastatin 80 MG Tablet PO (20:35)
[2019-12-25] MEDS: Lisinopril 5 MG Tablet PO (06:13)
[2019-12-25] MEDS: Tolterodine Tartrate 4 MG CAP.SA PO (06:13)
[2019-12-25] MEDS: Glucerna Shake 120 ML LIQUID PO ×4 (06:13→20:20)
[2019-12-25] MEDS: Pantoprazole Sodium 40 MG Tablet PO (06:13)
[2019-12-25 06:14] VITALS: BP 112/60; PULSE 63
[2019-12-25] MEDS: Levothyroxine 100 MCG Tablet PO (06:14)
[2019-12-25] MEDS: Loratadine 10 MG Tablet PO (06:14)
[2019-12-25] MEDS: Venlafaxine XR 150 MG Capsule PO (06:14)
[2019-12-25] MEDS: APIXABAN 5 MG TABLET PO ×2 (06:14→17:28)
[2019-12-25] MEDS: Metoprolol(XL)Succ 25 MG Tablet PO (06:14)
[2019-12-25] MEDS: Budesonide 3 MG CAPSULE.EC 6 MG PO (06:14)
[2019-12-25 06:21] LABS: Bedside Glucose 89 mg/dL (70-110)
[2019-12-25] MEDS: Multivitamins,Therapeutic Tablet 1 TABLET PO (07:50)
[2019-12-25] MEDS: Gabapentin 100 MG Capsule PO ×3 (07:50→17:28)
[2019-12-25 14:25] VITALS: BP 124/64; PULSE 63; RESP 18; TEMP 36.8; O2SAT 97
[2019-12-25] MEDS: Pravastatin 80 MG Tablet PO (20:21)
[2019-12-25] MEDS: Doxepin Hcl 25 MG Capsule PO (20:22)
[2019-12-26 05:00] VITALS: BP 92/57; PULSE 60
[2019-12-26] MEDS: Glucerna Shake 120 ML LIQUID PO ×3 (05:00→17:52)
[2019-12-26] MEDS: Lisinopril 5 MG Tablet PO (05:03)
[2019-12-26] MEDS: APIXABAN 5 MG TABLET PO ×2 (05:03→17:52)
[2019-12-26] MEDS: Venlafaxine XR 150 MG Capsule PO (05:03)
[2019-12-26] MEDS: Loratadine 10 MG Tablet PO (05:03)
[2019-12-26] MEDS: Pantoprazole Sodium 40 MG Tablet PO (05:03)
[2019-12-26] MEDS: Levothyroxine 100 MCG Tablet PO (05:03)
[2019-12-26] MEDS: Tolterodine Tartrate 4 MG CAP.SA PO (05:04)
[2019-12-26] MEDS: Budesonide 3 MG CAPSULE.EC 6 MG PO (05:07)
[2019-12-26 06:11] LABS: Bedside Glucose 111 mg/dL (70-110)
[2019-12-26 06:43] VITALS: BP 114/61; PULSE 57
[2019-12-26 07:54] VITALS: BP 124/59; PULSE 68
[2019-12-26] MEDS: Metoprolol(XL)Succ 25 MG Tablet PO (07:54)
[2019-12-26] MEDS: Gabapentin 100 MG Capsule PO ×3 (07:55→17:52)
[2019-12-26] MEDS: Multivitamins,Therapeutic Tablet 1 TABLET PO (07:55)
[2019-12-26 14:25] VITALS: BP 104/58; PULSE 65; RESP 20; TEMP 36.1; O2SAT 98
--- NOTE | 2019-12-26 15:03 | CHAPLAIN ---
Type of Pastoral Visit _x__ Initial Visit ___ Follow-up Visit ___ On-call Visit ___ General Patient Visit ___ Spiritual Assessment ___ Family Conference ___ Bereavement ___ Rapid Response ___ Code Blue ___ Other (describe below) Pastoral Care Referral From _x__ Patient ___ Family ___ Nurse ___ Physician ___ Special Education Secretary ___ Assistant Accounting Manager ___ Other (describe below) Sacrament/Intervention _x__ Active listening ___ Anointing ___ Baptist ___ Bereavement ___ Communion ___ Kylah exploration ___ ___ Life review ___ Prayer ___ Reconciliation ___ Sacrament of Sick ___ Supportive presence ___ Wedding ___ Other (describe below) Pastoral Comments
[2019-12-26] MEDS: Pravastatin 80 MG Tablet PO (20:00)
[2019-12-26] MEDS: Doxepin Hcl 25 MG Capsule PO (20:01)
[2019-12-27] MEDS: Glucerna Shake 120 ML LIQUID PO ×4 (05:39→20:14)
[2019-12-27 05:40] VITALS: BP 110/62; PULSE 58
[2019-12-27] MEDS: Venlafaxine XR 150 MG Capsule PO (05:40)
[2019-12-27] MEDS: Tolterodine Tartrate 4 MG CAP.SA PO (05:40)
[2019-12-27] MEDS: Metoprolol(XL)Succ 25 MG Tablet PO (05:40)
[2019-12-27] MEDS: Budesonide 3 MG CAPSULE.EC 6 MG PO (05:40)
[2019-12-27] MEDS: Lisinopril 5 MG Tablet PO (05:40)
[2019-12-27] MEDS: Loratadine 10 MG Tablet PO (05:40)
[2019-12-27] MEDS: APIXABAN 5 MG TABLET PO ×2 (05:40→17:04)
[2019-12-27] MEDS: Pantoprazole Sodium 40 MG Tablet PO (05:40)
[2019-12-27] MEDS: Levothyroxine 100 MCG Tablet PO (05:40)
[2019-12-27 05:46] LABS: Bedside Glucose 101 mg/dL (70-110)
[2019-12-27] MEDS: Multivitamins,Therapeutic Tablet 1 TABLET PO (08:24)
[2019-12-27] MEDS: Gabapentin 100 MG Capsule PO ×3 (08:24→17:04)
[2019-12-27 15:50] VITALS: BP 101/54; PULSE 60; RESP 16; TEMP 36.6; O2SAT 93
[2019-12-27] MEDS: Pravastatin 80 MG Tablet PO (20:12)
[2019-12-27] MEDS: Doxepin Hcl 25 MG Capsule PO (20:12)
[2019-12-28 05:57] VITALS: BP 117/53; PULSE 59
[2019-12-28] MEDS: Pantoprazole Sodium 40 MG Tablet PO (05:57)
[2019-12-28] MEDS: Tolterodine Tartrate 4 MG CAP.SA PO (05:57)
[2019-12-28] MEDS: Budesonide 3 MG CAPSULE.EC 6 MG PO (05:57)
[2019-12-28] MEDS: Lisinopril 5 MG Tablet PO (05:57)
[2019-12-28] MEDS: Venlafaxine XR 150 MG Capsule PO (05:57)
[2019-12-28] MEDS: Glucerna Shake 120 ML LIQUID PO ×4 (05:57→19:53)
[2019-12-28] MEDS: Metoprolol(XL)Succ 25 MG Tablet PO (05:57)
[2019-12-28] MEDS: Levothyroxine 100 MCG Tablet PO (05:57)
[2019-12-28] MEDS: Loratadine 10 MG Tablet PO (05:57)
[2019-12-28 06:01] LABS: Bedside Glucose 97 mg/dL (70-110)
[2019-12-28] MEDS: APIXABAN 5 MG TABLET PO ×2 (06:09→17:05)
[2019-12-28] MEDS: Multivitamins,Therapeutic Tablet 1 TABLET PO (08:44)
[2019-12-28] MEDS: Gabapentin 100 MG Capsule PO ×3 (08:44→17:05)
[2019-12-28] MEDS: Acetaminophen 500 MG Tablet 1000 MG PO ×2 (08:48→23:23)
--- NOTE | 2019-12-28 13:11 | CASEMGMT ---
Social Work IDT met with pt and daughter. pt on regular diet but is encouraged to eat soft foods, pt on nutritional supplement, but weight loss noted. Pt is set up and supervised for ADLs. Pt is walking 275 ft with FWW and 200ft with trialed cane. Pt completed 13 steps SBA. Explained insurance to pt NRD 12/29, and continued stay is not guaranteed. Discussed DC plans, pt agreeable to outpatient therapy at [facility], with transportation from [employer] [facility] or [facility] van. Pt requesting either walker or cane, and is agreeable to CCN coming to home for monitoring with medications and fiances. Pt has neighbor to check in on pt as well. Susan Ellis, social work photography intern Yue Tavares, NURSE INFORMATICS EDUCATOR EAR NOSE THROAT SURGEON
[2019-12-28 15:41] VITALS: BP 108/52; PULSE 53; RESP 14; TEMP 36.8; O2SAT 94
--- NOTE | 2019-12-28 17:00 | CASEMGMT ---
Social Work Reviewed and agreed with social work training intern documentation on this date. Yue Tavares, PRACTICAL NURSING FACULTY ENRICHMENT ASSISTANT
--- NOTE | 2019-12-28 19:51 | PN_ITS ---
Subjective: Resident seen in room, sitting in recliner, getting ready to eat supper. Nursing staff noted resident complain of right ear pain. On my interview, resident stated her right ear pain was gone. Vitals/I&O's: Vital Signs Temp Pulse Resp BP Pulse Ox 98.3 F 53 L 14 108/52 L 94 12/28/19 15:41 12/28/19 15:41 12/28/19 15:41 12/28/19 15:41 12/28/19 15:41 Oxygen Delivery Method Room Air Weight: 64.127 kg Body Mass Index (BMI) 26.6 Intake and Output for Last 24 Hours 12/26/19 12/27/19 12/28/19 23:59 23:59 23:59 Intake Total 720 / 720 960 / 960 1120 / 1120 Balance 720 / 720 960 / 960 1120 / 1120 Laboratory Results 12/28/19 05:49: POC Glucose 97 Past Medical History Past Medical History (Chronic Problems): Chronic Problems Kidney stone (Chronic) Patent foramen ovale (Chronic) Gastritis (Chronic) Incontinence of urine (Chronic) Osteoporosis (Chronic) Migraine (Chronic) Rheumatoid arthritis (Chronic) Diabetes mellitus (Chronic) Pulmonary emboli (Chronic) Diastolic CHF (Chronic) Hypoxia (Chronic) Hypothyroidism (Chronic) HTN (hypertension) (Chronic) HLD (hyperlipidemia) (Chronic) GERD (gastroesophageal reflux disease) (Chronic) Allergies azithromycin [From Zithromax] Allergy (Verified 05/11/18 11:24) Hives Sulfa (Sulfonamide Antibiotics) Allergy (Verified 05/11/18 11:24) Hives Home Medications: Ambulatory Orders Medication Instructions Recorded Alendronate Sodium [Fosamax] 70 mg PO Q7D@0700 12/07/13 Benzonatate [Tessalon Perle] 100 mg PO TID 12/07/13 Biotin 10 mg PO DAILY 12/07/13 Levothyroxine [Synthroid] 100 mcg PO DAILY 12/07/13 Lisinopril [Zestril] 5 mg PO DAILY 12/07/13 Loratadine [Claritin] 10 mg PO DAILY 12/07/13 Metoprolol(XL)Succ [Toprol Xl] 25 mg PO DAILY 12/07/13 Multivitamins,Therapeutic 1 tablet PO DAILY 12/07/13 [Multivitamin] Nystatin/Triamcin Cream [Mycolog] 1 applic TOPICAL BID 12/07/13 Omeprazole [Prilosec] 40 mg PO DAILY 12/07/13 Pravastatin [Pravachol] 80 mg PO QHS 12/07/13 Gabapentin [Neurontin] 100 mg PO TIDCM 05/11/18 Fluticasone 0.05% [Flonase Nasal 2 spray NASAL DAILY 12/11/19 [place]] Oxybutynin Chloride [Oxybutynin 15 mg PO DAILY 12/11/19 Chloride ER] Venlafaxine HCl ER 150 mg PO DAILY 12/11/19 Apixaban [Eliquis] 5 mg PO BID 12/21/19 Budesonide [Entocort EC] 6 mg PO DAILY 12/21/19 Surgical History: appendectomy, cataract - Bilateral., hysterectomy - Total Abdominal., tonsillectomy, - - Breast biopsy, lithotripsy, hemorrhoidectomy, right shoulder, left ureteral stent, Bilateral carpal tunnel release, Bladder surgery. Psychiatric History: No pertinent psych hx ENVIRONMENTAL GEOLOGIST History: No pertinent ENVIRONMENTAL GEOLOGIST history Lives: Alone Smoking Status: Former smoker Tobacco Use: Cigarettes Alcohol: None Drugs: None - *Family History Maternal History Items: Cancer Sibling History Items: Cancer, Heart Disease Capacity - Capacity Assessment Tool Can the patient make a choice & communicate that choice?: Yes Can the patient understand benefits, risks and alternatives?: Yes Can the patient make a logical, rational choice?: Yes Is the choice the patient makes consistent w/ their values?: Yes Is there an impending, emergent risk to the patient?: No Does the patient have an Advance Directive?: No Is there a Surrogate Available?: Yes i.e. HCPOA: Yes i.e. close relative (spouse, child, parent, sibling)?: Yes Review of Systems Constitutional: Denies: Chills, Fever, Weight Change HEENT: Reports: Ear Pain - Right.. Denies: Head Aches, Sinus Congestion, Sinus Drainage Cardiovascular: Denies: Chest Pain, Palpitations Respiratory: Denies: Cough, Shortness of breath at rest, Sputum production Gastrointestinal: Denies: Abdominal Pain, Nausea, Vomiting Genitourinary: Denies: Dysuria Musculoskeletal: Denies: Joint Pain, Joint Tenderness Skin: Denies: Rash, Wounds Neurological: Denies: Numbness, Tingling, Focal weakness Psychiatric: Denies: Anxiety, Depression, Homicidal Ideations, Suicidal Ideations Hematologic/ Lymphatic: Denies: Easy Bruising, Easy Bleeding 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) DVT (deep venous thrombosis) (Acute) NSTEMI (non-ST elevated myocardial infarction) (Acute) - Physical Exam Vitals/I&O's: Vital Signs Temp Pulse Resp BP Pulse Ox 98.3 F 53 L 14 108/52 L 94 12/28/19 15:41 12/28/19 15:41 12/28/19 15:41 12/28/19 15:41 12/28/19 15:41 Oxygen Delivery Method Room Air Weight: 64.127 kg Body Mass Index (BMI) 26.6 Intake and Output for Last 24 Hours 12/26/19 12/27/19 12/28/19 23:59 23:59 23:59 Intake Total 720 / 720 960 / 960 1120 / 1120 Balance 720 / 720 960 / 960 1120 / 1120 General: Alert, Oriented x3, Cooperative HEENT: Atraumatic, PERRLA, EOMI, Normocephalic, TM's Clear Neck: Supple, No JVD, Negative Carotid Bruits Lungs: Clear to auscultation, Normal air movement Cardiovascular: Regular rate, No murmurs Abdomen: Bowel Sounds Present, Soft, Non Tender Extremities: No edema, Capillary Refill Less than 3 Seconds Skin: No rashes, No breakdown Musculoskeletal: No Tenderness to Palpation of Joints or Extremities Neurological: Cranial nerves II-XII grossly intact Psych/Mental Status: Normal Affect, Appropriate Laboratory Results 12/28/19 05:49: POC Glucose 97 Current Medications Acetaminophen (Tylenol) 1,000 mg PO Q6H PRN PRN PRN Reason: Pain Score 1-10/10 Last Admin: 12/28/19 08:48 Dose: 1,000 mg Documented by: Alendronate Sodium (Fosamax) 70 mg PO Q7D@0700 [facility] Last Admin: 12/23/19 05:48 Dose: 70 mg Documented by: Apixaban (Eliquis) 5 mg PO BID [facility] Last Admin: 12/28/19 17:05 Dose: 5 mg Documented by: Benzonatate (Tessalon Perle) 100 mg PO TID PRN PRN Reason: COUGH Bisacodyl (Dulcolax) 10 mg PO DAILY PRN PRN PRN Reason: Constipation Budesonide (Budesonide Ec) 6 mg PO DAILY [facility] Last Admin: 12/28/19 05:57 Dose: 6 mg Documented by: Doxepin HCl ([place]ine[place]an) 25 mg PO QHS [facility] Last Admin: 12/27/19 20:12 Dose: 25 mg Documented by: Fluticasone Propionate (Flonase Nasal [place]) 2 spray NASAL DAILY PRN PRN Reason: COUGH Gabapentin (Neurontin) 100 mg PO TIDCM [facility] Stop: 03/21/20 07:46 Last Admin: 12/28/19 17:05 Dose: 100 mg Documented by: Levothyroxine Sodium (Synthroid) 100 mcg PO DAILY [facility] Last Admin: 12/28/19 05:57 Dose: 100 mcg Documented by: Lisinopril (Zestril) 5 mg PO DAILY [facility] Last Admin: 12/28/19 05:57 Dose: 5 mg Documented by: Loratadine (Claritin) 10 mg PO DAILY [facility] Last Admin: 12/28/19 05:57 Dose: 10 mg Documented by: Metoprolol Succinate (Toprol Xl (Beta Sola)) 25 mg PO DAILY [facility] Last Admin: 12/28/19 05:57 Dose: 25 mg Documented by: [facility] Last Admin: 12/28/19 08:44 Dose: 1 tablet Documented by: Nutritional Formula (Lactose Free) (Glucerna Shake) 120 ml PO 4X/DAY [facility] Last Admin: 12/28/19 17:04 Dose: 120 ml Documented by: Pantoprazole Sodium (Protonix) 40 mg PO DAILY [facility] Last Admin: 12/28/19 05:57 Dose: 40 mg Documented by: Polyethylene Glycol (Miralax) 17 gm PO DAILY PRN PRN PRN Reason: Constipation Pravastatin Sodium (Pravachol) 80 mg PO QHS [facility] Last Admin: 12/27/19 20:12 Dose: 80 mg Documented by: Senna/Docusate Sodium (Senokot-S, Lalitha-Colace) 1 tablet PO BID PRN PRN PRN Reason: Constipation Tolterodine Tartrate (Detrol La) 4 mg PO DAILY [facility] Last Admin: 12/28/19 05:57 Dose: 4 mg Documented by: Tuberculin PPD (Tubersol, Aplisol, Ppd) 5 tu ID [id number] Stop: 12/29/19 10:01 Venlafaxine HCl (Effexor Xr) 150 mg PO DAILY [facility] Last Admin: 12/28/19 05:57 Dose: 150 mg Documented by: Assessment/Plan All Active Problems Debility (Acute) Acute respiratory failure (Acute) Bilateral pulmonary embolism (Acute) 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 * Right ear pain - Otoscopic examination of bilateral ears normal, although she had tenderness during otoscopic exam. I reassured resident and let her know if the ear pain comes back, let me know, and I will reassess.
[2019-12-28] MEDS: Doxepin Hcl 25 MG Capsule PO (19:53)
[2019-12-28] MEDS: Pravastatin 80 MG Tablet PO (19:53)
[2019-12-29 05:27] VITALS: BP 100/55; PULSE 60
[2019-12-29] MEDS: Glucerna Shake 120 ML LIQUID PO ×4 (05:27→21:28)
[2019-12-29] MEDS: Budesonide 3 MG CAPSULE.EC 6 MG PO (05:27)
[2019-12-29] MEDS: Pantoprazole Sodium 40 MG Tablet PO (05:27)
[2019-12-29] MEDS: Loratadine 10 MG Tablet PO (05:27)
[2019-12-29] MEDS: Metoprolol(XL)Succ 25 MG Tablet PO (05:27)
[2019-12-29] MEDS: Tolterodine Tartrate 4 MG CAP.SA PO (05:27)
[2019-12-29] MEDS: Lisinopril 5 MG Tablet PO (05:28)
[2019-12-29] MEDS: Levothyroxine 100 MCG Tablet PO (05:28)
[2019-12-29] MEDS: Venlafaxine XR 150 MG Capsule PO (05:28)
[2019-12-29] MEDS: APIXABAN 5 MG TABLET PO ×2 (05:28→16:13)
[2019-12-29 05:41] LABS: Absolute Lymphocyte Count 2.65 X10^3/uL (0.83-4.51); Absolute Neutrophil Count 4.5 X10^3/uL (2.0-7.7); Basophil# 0.08 X10^3/uL; Eosinophil# 0.21 X10^3/uL; Eosinophils% 2.6 % (0-5); Hematocrit 31.3 % (37-47); Hemoglobin 9.9 g/dL (12.0-15.0); Lymphocyte # 2.65 X10^3/ul (4.0); Mean Corp Hgb Conc 31.6 g/dL (32-36); Mean Corpuscular Volume 94.8 fL (81-99); Mean Platelet Vol. 10.3 fl (6.2-12.0); Monocyte# 0.59 X10^3/uL; Monocyte% 7.4 % (0-10); NRBC Flagged by Analyzer 0 % (0-5); Neutrophil # 4.45 X10^3/uL (2.7-7.7); Neutrophil % 55.5 % (47-70); Platelet Count 408 K/mm3 (150-450); RBC Distribution Width CV 14.9 % (11.6-14.6); RBC Distribution Width SD 50.9 fl (35.1-43.9)
[2019-12-29 06:25] LABS: Bedside Glucose 93 mg/dL (70-110)
[2019-12-29 06:25] LABS: Anion Gap 6 (5-15); BUN 37 mg/dL (7-18); Calcium,Total 9.5 mg/dL (8.5-10.1); Chloride 105 mmol/L (98-107); Creatinine, Serum 1.32 mg/dL (0.55-1.02); EST Glomerular Filtration Rate 43 mL/min (>60); Est Glom Filt Rate - Afr Amer 52 mL/min (>60); Estimated Creatinine Clearance 33.16 ml/min; Glucose 86 mg/dL (74-106); Potassium 4.4 mmol/L (3.5-5.1); Sodium Level 139 mmol/L (136-145)
[2019-12-29] MEDS: Gabapentin 100 MG Capsule PO ×3 (08:02→16:13)
[2019-12-29] MEDS: Multivitamins,Therapeutic Tablet 1 TABLET PO (08:02)
[2019-12-29] MEDS: Tuberculin,Purif.prot.deriv. 50 TU/ML Vial 5 ML ID (09:05)
[2019-12-29 13:38] VITALS: BP 95/52; PULSE 54; RESP 16; TEMP 36.6; O2SAT 91
--- NOTE | 2019-12-29 16:55 | CASEMGMT ---
Reviewed and agreed with SW sourcing intern documentation on this date. MAYANK Weinberg
[2019-12-29] MEDS: Pravastatin 80 MG Tablet PO (21:28)
[2019-12-29] MEDS: Doxepin Hcl 25 MG Capsule PO (21:28)
[2019-12-30] MEDS: Venlafaxine XR 150 MG Capsule PO (05:30)
[2019-12-30] MEDS: Levothyroxine 100 MCG Tablet PO (05:30)
[2019-12-30] MEDS: Alendronate Sodium 70 MG Tablet PO (05:30)
[2019-12-30 05:31] VITALS: BP 118/57; PULSE 61
[2019-12-30] MEDS: Metoprolol(XL)Succ 25 MG Tablet PO (05:31)
[2019-12-30] MEDS: Pantoprazole Sodium 40 MG Tablet PO (05:31)
[2019-12-30] MEDS: Loratadine 10 MG Tablet PO (05:31)
[2019-12-30] MEDS: APIXABAN 5 MG TABLET PO ×2 (05:31→16:34)
[2019-12-30] MEDS: Tolterodine Tartrate 4 MG CAP.SA PO (05:31)
[2019-12-30] MEDS: Budesonide 3 MG CAPSULE.EC 6 MG PO (05:31)
[2019-12-30] MEDS: Glucerna Shake 120 ML LIQUID PO ×4 (05:34→20:08)
[2019-12-30 06:21] LABS: Bedside Glucose 105 mg/dL (70-110)
[2019-12-30] MEDS: Multivitamins,Therapeutic Tablet 1 TABLET PO (08:06)
[2019-12-30] MEDS: Gabapentin 100 MG Capsule PO ×3 (08:06→16:34)
[2019-12-30] MEDS: Acetaminophen 500 MG Tablet 1000 MG PO (11:12)
[2019-12-30] MEDS: Fluticasone 0.05% 1 SPRAY NASAL.SRY 2 SPRAY NASAL (11:28)
--- NOTE | 2019-12-30 13:26 | VDLE_ITS ---
Reason For Study: Pain RIGHT LEFT GSV is normal. GSV is normal. CFV is compressible, spontaneous, phasic, CFV is compressible, spontaneous, phasic, competent and demonstrates normal competent, and demonstrates normal augmentation. augmentation. FV is compressible, spontaneous, phasic, FV is compressible, spontaneous, phasic, competent and demonstrates normal competent and demonstrates normal augmentation. augmentation. POP V is compressible, spontaneous, phasic, T/P Trunk is compressible. competent and demonstrates normal PTV is compressible. augmentation. LT PerV is compressible. T/P Trunk is compressible. Lt PopV and Lt GastrocV are dilated and non PTV is compressible. compressible consistent with acute DVT. RT PerV is compressible. Procedure Exam performed portable in patient room. A preliminary report was called and/or faxed to Patients RN. Interpretation Summary Acute deep vein thrombosis is noted in the left popliteal vein. Acute deep vein thrombosis is noted in the left gastrocnemius vein. The remainder of the left lower extremity deep venous system is patent and compressible. The left common femoral vein and femoral vein are competent. Deep veins of the right lower extremity are patent and compressible segmentally. There is no evidence of right lower extremity deep vein thrombosis. Valvular competence appears intact within the proximal deep venous system on the right . The great saphenous veins appear bilaterally patent and compressible segmentally. Ordering Physician: James Moeller Referring Physician: Wolfgang Hammond Performed By: Nila Hanna, BHAVESH, RVT
--- NOTE | 2019-12-30 13:45 | RAD_ITS ---
STUDY: X-RAY - RIGHT KNEE REASON FOR EXAM: Female, 64 years old. Pain, decreased range of motion TECHNIQUE: 3 view(s) of the knee. COMPARISON: None. FINDINGS: Normal visualized distal femur. Normal visualized proximal tibia and fibula. Normal proximal tibiofibular articulation. There is mild degenerative arthrosis of the medial femorotibial compartment. Normal lateral femorotibial compartment. Normal patellofemoral articulation. The soft tissue structures are unremarkable. RAD/Knee 3 Views IMPRESSION: Mild medial compartmental arthrosis. Electronically Signed: Ezekiel Rodriguez MD at 14:39 EST , Service support ,
[2019-12-30 14:11] VITALS: BP 102/62; PULSE 60; RESP 18; TEMP 36.3; O2SAT 95
--- NOTE | 2019-12-30 14:31 | NURSING ---
Addendum entered by Denia Stover 12/30/19 14:58: DR. MASON AWARE OF KNEE XRAY. Original Note: NOTIFIED DR. MASON OF DVT TO LEFT POPLITEAL AND GASTROC VEINS. CURRENTLY ON ELIQUIS. NO N.O. AT THIS TIME.
--- NOTE | 2019-12-30 16:42 | CASEMGMT ---
Social Work Notified pt insurance issued LCD 01/01, DC 01/02. Pt agreeable to [facility] PT/OT, CCN, and requesting FWW. Referrals made. Yue Tavares, PLASTIC DESIGN APPLIER A P SUPERVISOR
--- NOTE | 2019-12-30 18:40 | PCM.DC ---
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) Kidney stone (Chronic) DVT (deep venous thrombosis) (Acute) Patent foramen ovale (Chronic) Gastritis (Chronic) Incontinence of urine (Chronic) NSTEMI (non-ST elevated myocardial infarction) (Acute) Osteoporosis (Chronic) Migraine (Chronic) Rheumatoid arthritis (Chronic) Diabetes mellitus (Chronic) You will use the following diet at home:: No restrictions, Regular Your food should be the consistency of: Regular Your liquids should be the consistency of: Regular/Thin Discharge Activity: Return to Normal Activity, May Shower, Use Walker Weight Bearing Status: Weight bearing as tolerated Call your doctor if you observe: Fever of 101 or Higher, Inability to urinate, Inability to have a bowel movement, Shortness of breath, Chest pain, Uncontrolled pain Allergies/Adverse Reactions: Allergies azithromycin [From Zithromax] Allergy (Verified 05/11/18 11:24) Hives Sulfa (Sulfonamide Antibiotics) Allergy (Verified 05/11/18 11:24) Hives Medications to take at Discharge Alendronate Sodium [Fosamax] 70 mg PO Q7D@0700 12/07/13 Levothyroxine [Synthroid] 100 mcg PO DAILY 12/07/13 Loratadine [Claritin] 10 mg PO DAILY 12/07/13 Metoprolol(XL)Succ [Toprol Xl (Beta Sola)] 25 mg PO DAILY 12/07/13 Multivitamins,Therapeutic [Multivitamin] 1 tablet PO DAILY 12/07/13 Omeprazole [Prilosec] 40 mg PO DAILY 12/07/13 Pravastatin [Pravachol] 80 mg PO QHS 12/07/13 Gabapentin [Neurontin] 100 mg PO TIDCM 05/11/18 Fluticasone 0.05% [Flonase Nasal [place]] 2 spray NASAL DAILY 12/11/19 Oxybutynin Chloride [Oxybutynin Chloride ER] 15 mg PO DAILY 12/11/19 Venlafaxine HCl ER 150 mg PO DAILY 12/11/19 Apixaban [Eliquis] 5 mg PO BID 12/21/19 Budesonide [Entocort EC] 6 mg PO DAILY 12/21/19 Acetaminophen [Tylenol] 1,000 mg PO Q6H PRN PRN tab 12/30/19 Apixaban [Eliquis] 5 mg PO BID #60 tab 12/30/19 Budesonide [Budesonide EC] 6 mg PO DAILY capsule.ec 12/30/19 The following prescriptions were given: Apixaban [Eliquis] 5 mg PO BID #60 tab Transmission Status: Pending to [facility] #30 Primary Care Physician: Wolfgang Hammond MD [Primary Care Provider] - Please follow up with your Primary Care Physician in: 1 week. Test Results: Test results from this visit will be discussed in further detail at your follow-up appointment, if applicable. Please Follow Up With: Dr. Hammond (PCP) Proposed Discharge Date: 01/02/20
--- NOTE | 2019-12-30 18:41 | DS.PCM_ITS ---
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) DVT (deep venous thrombosis) (Acute) NSTEMI (non-ST elevated myocardial infarction) (Acute) - Secondary Discharge Diagnosis Chronic Problems Kidney stone (Chronic) Patent foramen ovale (Chronic) Gastritis (Chronic) Incontinence of urine (Chronic) Osteoporosis (Chronic) Migraine (Chronic) Rheumatoid arthritis (Chronic) Diabetes mellitus (Chronic) Pulmonary emboli (Chronic) Diastolic CHF (Chronic) Hypoxia (Chronic) Hypothyroidism (Chronic) HTN (hypertension) (Chronic) HLD (hyperlipidemia) (Chronic) GERD (gastroesophageal reflux disease) (Chronic) Hospital Course and Treatment Imaging Results: 12/30/19 13:45 Xray Knee [Knee 3 Views] [RAD] Urgent Operations: None Procedures: None Summary of Care Provided: The patient is a 64 year old Female with below past medical history hospitalized for bilateral pulmonary embolism, left lower extremity DVT, complicated by upper aortic/SMA thrombosis with PFO, admitted to TCU with debility, here for rehabilitation, strengthening, prior to discharge home alone. Lifelong oral anticoagulation recommended. Discharge home alone, [facility] PT/OT, [facility], Front Wheeled Walker. 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) DVT (deep venous thrombosis) (Acute) NSTEMI (non-ST elevated myocardial infarction) (Acute) - Physical Exam Vitals/I&O's: Vital Signs Temp Pulse Resp BP Pulse Ox 97.4 F L 60 18 102/62 95 12/30/19 14:11 12/30/19 14:11 12/30/19 14:11 12/30/19 14:11 12/30/19 14:11 Oxygen Delivery Method Room Air Weight: 64.127 kg Body Mass Index (BMI) 26.6 Intake and Output for Last 24 Hours 12/28/19 12/29/19 12/30/19 23:59 23:59 23:59 Intake Total 1120 / 1120 1200 / 1200 960 / 960 Balance 1120 / 1120 1200 / 1200 960 / 960 Laboratory Results 12/30/19 06:14: POC Glucose 105 Current Medications Acetaminophen (Tylenol) 1,000 mg PO Q6H PRN PRN PRN Reason: Pain Score 1-10/10 Last Admin: 12/30/19 11:12 Dose: 1,000 mg Documented by: Alendronate Sodium (Fosamax) 70 mg PO Q7D@0700 [facility] Last Admin: 12/30/19 05:30 Dose: 70 mg Documented by: Apixaban (Eliquis) 5 mg PO BID [facility] Last Admin: 12/30/19 16:34 Dose: 5 mg Documented by: Benzonatate (Tessalon Perle) 100 mg PO TID PRN PRN Reason: COUGH Bisacodyl (Dulcolax) 10 mg PO DAILY PRN PRN PRN Reason: Constipation Budesonide (Budesonide Ec) 6 mg PO DAILY [facility] Last Admin: 12/30/19 05:31 Dose: 6 mg Documented by: Doxepin HCl (Sinequan) 25 mg PO QHS [facility] Last Admin: 12/29/19 21:28 Dose: 25 mg Documented by: Fluticasone Propionate (Flonase Nasal [place]) 2 spray NASAL DAILY PRN PRN Reason: COUGH Last Admin: 12/30/19 11:28 Dose: 2 spray Documented by: Gabapentin (Neurontin) 100 mg PO TIDCM [facility] Stop: 03/21/20 07:46 Last Admin: 12/30/19 16:34 Dose: 100 mg Documented by: Levothyroxine Sodium (Synthroid) 100 mcg PO DAILY [facility] Last Admin: 12/30/19 05:30 Dose: 100 mcg Documented by: Loratadine (Claritin) 10 mg PO DAILY [facility] Last Admin: 12/30/19 05:31 Dose: 10 mg Documented by: Methylprednisolone (Medrol Dosepak) 4 mg PO [facility] Metoprolol Succinate (Toprol Xl (Beta Sola)) 25 mg PO DAILY [facility] Last Admin: 12/30/19 05:31 Dose: 25 mg Documented by: Multivitamins (Multivitamin) 1 tablet PO DAILYCM [facility] Last Admin: 12/30/19 08:06 Dose: 1 tablet Documented by: Nutritional Formula (Lactose Free) (Glucerna Shake) 120 ml PO 4X/DAY [facility] Last Admin: 12/30/19 16:33 Dose: 120 ml Documented by: Pantoprazole Sodium (Protonix) 40 mg PO DAILY [facility] Last Admin: 12/30/19 05:31 Dose: 40 mg Documented by: Polyethylene Glycol (Miralax) 17 gm PO DAILY PRN PRN PRN Reason: Constipation Pravastatin Sodium (Pravachol) 80 mg PO QHS [facility] Last Admin: 12/29/19 21:28 Dose: 80 mg Documented by: Senna/Docusate Sodium (Senokot-S, Lalitha-Colace) 1 tablet PO BID PRN PRN PRN Reason: Constipation Tolterodine Tartrate (Detrol La) 4 mg PO DAILY [facility] Last Admin: 12/30/19 05:31 Dose: 4 mg Documented by: Venlafaxine HCl (Effexor Xr) 150 mg PO DAILY [facility] Last Admin: 12/30/19 05:30 Dose: 150 mg Documented by: Discharge Diet: No Restrictions Discharge Activity: Return to Normal Activity, May Shower, Use Walker Weight Bearing Status: Weight bearing as tolerated Call your doctor if you observe: Fever of 101 or Higher, Inability to urinate, Inability to have a bowel movement, Shortness of breath, Chest pain, Uncontrolled pain Home Medications: Medications to take at Discharge Alendronate Sodium [Fosamax] 70 mg PO Q7D@0700 12/07/13 Levothyroxine [Synthroid] 100 mcg PO DAILY 12/07/13 Loratadine [Claritin] 10 mg PO DAILY 12/07/13 Metoprolol(XL)Succ [Toprol Xl (Beta Sola)] 25 mg PO DAILY 12/07/13 Multivitamins,Therapeutic [Multivitamin] 1 tablet PO DAILY 12/07/13 Omeprazole [Prilosec] 40 mg PO DAILY 12/07/13 Pravastatin [Pravachol] 80 mg PO QHS 12/07/13 Gabapentin [Neurontin] 100 mg PO TIDCM 05/11/18 Fluticasone 0.05% [Flonase Nasal [place]] 2 spray NASAL DAILY 12/11/19 Oxybutynin Chloride [Oxybutynin Chloride ER] 15 mg PO DAILY 12/11/19 Venlafaxine HCl ER 150 mg PO DAILY 12/11/19 Apixaban [Eliquis] 5 mg PO BID 12/21/19 Budesonide [Entocort EC] 6 mg PO DAILY 12/21/19 Acetaminophen [Tylenol] 1,000 mg PO Q6H PRN PRN tab 12/30/19 Apixaban [Eliquis] 5 mg PO BID #60 tab 12/30/19 Budesonide [Budesonide EC] 6 mg PO DAILY capsule.ec 12/30/19 Following Prescrptions Were Given to Patient: Apixaban [Eliquis] 5 mg PO BID #60 tab Transmission Status: Pending to [facility] #30 Primary Care Physician: Wolfgang Hammond MD [Primary Care Provider] - Please follow up with your Primary Care Physician in: 1 week. Please Follow Up With: Dr. Hammond (PCP) Disposition: Home Minutes spent on discharge:: 30 Patient Condition:: Stable Medical Necessity - Tobacco Use Smoking Status: Former smoker Tobacco Use: Cigarettes Meaningful Use Info Meaningful Use Diagnoses (Choose all that apply): None applicable
[2019-12-30] MEDS: MethylPREDNISolone DosePak 4 MG BOX PO (20:09)
[2019-12-30] MEDS: Doxepin Hcl 25 MG Capsule PO (20:10)
[2019-12-30] MEDS: Pravastatin 80 MG Tablet PO (20:10)
[2019-12-31 05:51] LABS: Bedside Glucose 186 mg/dL (70-110)
[2019-12-31 06:36] VITALS: BP 124/74; PULSE 67
[2019-12-31] MEDS: Metoprolol(XL)Succ 25 MG Tablet PO (06:36)
[2019-12-31] MEDS: Tolterodine Tartrate 4 MG CAP.SA PO (06:38)
[2019-12-31] MEDS: Venlafaxine XR 150 MG Capsule PO (06:38)
[2019-12-31] MEDS: Pantoprazole Sodium 40 MG Tablet PO (06:38)
[2019-12-31] MEDS: Levothyroxine 100 MCG Tablet PO (06:38)
[2019-12-31] MEDS: Budesonide 3 MG CAPSULE.EC 6 MG PO (06:38)
[2019-12-31] MEDS: APIXABAN 5 MG TABLET PO ×2 (06:38→16:46)
[2019-12-31] MEDS: Loratadine 10 MG Tablet PO (06:38)
[2019-12-31] MEDS: Glucerna Shake 120 ML LIQUID PO ×4 (06:38→20:59)
[2019-12-31] MEDS: MethylPREDNISolone DosePak 4 MG BOX PO ×4 (08:30→20:59)
[2019-12-31] MEDS: Gabapentin 100 MG Capsule PO ×3 (08:30→16:46)
[2019-12-31] MEDS: Multivitamins,Therapeutic Tablet 1 TABLET PO (08:30)
[2019-12-31 14:48] VITALS: BP 133/69; PULSE 65; RESP 16; TEMP 36.7; O2SAT 94
[2019-12-31] MEDS: Pravastatin 80 MG Tablet PO (21:00)
[2019-12-31] MEDS: Doxepin Hcl 25 MG Capsule PO (21:00)
[2020-01-01 05:46] VITALS: BP 130/73; PULSE 62
[2020-01-01] MEDS: Levothyroxine 100 MCG Tablet PO (05:46)
[2020-01-01] MEDS: Venlafaxine XR 150 MG Capsule PO (05:46)
[2020-01-01] MEDS: APIXABAN 5 MG TABLET PO ×2 (05:46→17:07)
[2020-01-01] MEDS: Loratadine 10 MG Tablet PO (05:46)
[2020-01-01] MEDS: Metoprolol(XL)Succ 25 MG Tablet PO (05:46)
[2020-01-01] MEDS: Budesonide 3 MG CAPSULE.EC 6 MG PO (05:46)
[2020-01-01] MEDS: Pantoprazole Sodium 40 MG Tablet PO (05:46)
[2020-01-01] MEDS: Tolterodine Tartrate 4 MG CAP.SA PO (05:47)
[2020-01-01] MEDS: Glucerna Shake 120 ML LIQUID PO ×4 (05:48→19:47)
[2020-01-01 06:21] LABS: Bedside Glucose 165 mg/dL (70-110)
[2020-01-01] MEDS: MethylPREDNISolone DosePak 4 MG BOX PO ×4 (07:54→19:47)
[2020-01-01] MEDS: Multivitamins,Therapeutic Tablet 1 TABLET PO (07:54)
[2020-01-01] MEDS: Gabapentin 100 MG Capsule PO ×3 (07:54→17:07)
[2020-01-01 14:42] VITALS: BP 126/72; PULSE 64; RESP 16; TEMP 36.2; O2SAT 97
[2020-01-01] MEDS: Pravastatin 80 MG Tablet PO (19:48)
[2020-01-01] MEDS: Doxepin Hcl 25 MG Capsule PO (19:48)
[2020-01-02 05:37] VITALS: BP 137/75; PULSE 60
[2020-01-02] MEDS: Levothyroxine 100 MCG Tablet PO (05:37)
[2020-01-02] MEDS: Pantoprazole Sodium 40 MG Tablet PO (05:37)
[2020-01-02] MEDS: Tolterodine Tartrate 4 MG CAP.SA PO (05:37)
[2020-01-02] MEDS: Metoprolol(XL)Succ 25 MG Tablet PO (05:37)
[2020-01-02] MEDS: Venlafaxine XR 150 MG Capsule PO (05:37)
[2020-01-02] MEDS: Loratadine 10 MG Tablet PO (05:37)
[2020-01-02] MEDS: APIXABAN 5 MG TABLET PO (05:37)
[2020-01-02] MEDS: Budesonide 3 MG CAPSULE.EC 6 MG PO (05:37)
[2020-01-02 06:16] LABS: Bedside Glucose 113 mg/dL (70-110)
[2020-01-02] MEDS: Multivitamins,Therapeutic Tablet 1 TABLET PO (07:56)
[2020-01-02] MEDS: MethylPREDNISolone DosePak 4 MG BOX PO ×2 (07:56→11:44)
[2020-01-02] MEDS: Gabapentin 100 MG Capsule PO ×2 (07:56→11:44)
[2020-01-02 09:22] VITALS: BP 138/77; PULSE 63; RESP 16; TEMP 37.1; O2SAT 94
[2020-01-02] MEDS: Glucerna Shake 120 ML LIQUID PO (11:44)
--- NOTE | 2020-01-02 16:46 | CASEMGMT ---
Social Work Reviewed and agreed with SW internal wholesaler documentation on this date. Yue Tavares, [employer]
--- NOTE | 2020-01-03 09:06 | MDS.RN ---
Information for the mds was obtained from review of the clinical record, interview of resident, staff, and direct observation of resident's care.
--- NOTE | 2020-01-09 13:28 | CCN.REFER ---
Patient declines CCN.
== END 2020-01-02 12:27 | disposition home or self-care (01) | DRG 175 ==
PROVIDERS: Admitting Provider Family Medicine Geriatric Medicine; PCP Family Medicine; Visit Provider Family Medicine Geriatric Medicine
DX: I26.99 Other pulmonary embolism without acute cor pulmonale (principal); K55.069 Acute infarction of intestine, part and extent unspecified; Q21.1 Atrial septal defect; I82.402 Acute embolism and thrombosis of unspecified deep veins of left lower extremity; I50.32 Chronic diastolic (congestive) heart failure; K21.9 Gastro-esophageal reflux disease without esophagitis; N32.81 Overactive bladder; F32.9 Major depressive disorder, single episode, unspecified; B35.4 Tinea corporis; E78.5 Hyperlipidemia, unspecified; I11.0 Hypertensive heart disease with heart failure; E03.9 Hypothyroidism, unspecified; I25.2 Old myocardial infarction; M06.9 Rheumatoid arthritis, unspecified; E11.9 Type 2 diabetes mellitus without complications; F17.210 Nicotine dependence, cigarettes, uncomplicated
CPT/HCPCS: 36415; 73562; 80048; 82962; 85025; 92507; 92523; 93970; 97110; 97116; 97162; 97166; 97530; 97535; 97802; 99406

== ENCOUNTER 2020-08-24 16:33 | Emergency (ER) | payer MEDICARE, MEDICAID, SELFPAY ==
[2020-08-24 16:34] VITALS: BP 131/86; PULSE 66; RESP 16; TEMP 36.5; O2SAT 98; BMI 27.3
--- NOTE | 2020-08-24 16:44 | ED.VIS.UPPEX ---
History of Present Illness Chief Complaint: Laceration Informant: Patient, Family Occurred: Today Mechanism/Context: Fall Onset: Today Context: Sudden Onset Timing: Continuous Quality of Pain: Sharp Location: Right hand Current Severity: Mild Maximum Severity: Mild Worsened by: Movement Relieved by: Nothing Associated Symptoms: Negative for: Parasthesia, Weakness, Loss of Funtion Narrative: 65-year-old [id number] female presents with multiple lacerations to the right hand. She tripped and fell walking up her steps her hand went through the glass window over her front door. No other injuries. Unable to get the bleeding controlled. She is on a blood thinner but she does not remember the name of it. Unknown last tetanus. No weakness or paresthesias. Rest of review of systems are negative. Tetanus Immunization: Unknown Prior similar symptoms: No Recent Illness/Hospitalization: No Past Medical History - Allergies and Home Meds Allergies/Adverse Reactions: Allergies azithromycin [From Zithromax] Allergy (Verified 08/24/20 16:33) Hives Sulfa (Sulfonamide Antibiotics) Allergy (Verified 08/24/20 16:33) Hives Primary Care Physician: Wolfgang Hammond MD [Primary Care Provider] - Prior records reviewed: Yes Past Medical History: - - PE, CAD, hypertension, hyperlipidemia, COPD Surgical History: appendectomy, cataract - Bilateral., hysterectomy - Total Abdominal., tonsillectomy, - - Breast biopsy, lithotripsy, hemorrhoidectomy, right shoulder, left ureteral stent, Bilateral carpal tunnel release, Bladder surgery. Lives: With Family Smoking Status: Former smoker Alcohol: Occasional Drugs: None - Family History Maternal Family History: Reports: Cancer Sibling Family History: Reports: Cancer, Heart Disease Review of Systems All systems negative except as indicated General: Denies: Chills, Fever, Sweats Eyes: Denies: Visual changes - bilaterally, Diplopia ENT: Denies: Rhinorrhea, Sore throat Cardiovascular: Denies: Chest pain, Palpitations Respiratory: Denies: Dyspnea, Cough, Dyspnea on exertion Gastrointestinal: Denies: Abdominal pain, Nausea, Vomiting, Diarrhea, Melena, Hematochezia Genitourinary: Denies: Dysuria, Hematuria, Frequency Musculoskeletal: Reports: Extremity Pain. Denies: Back pain, Swelling Skin: Reports: Abrasions, Wounds. Denies: Rash Neurological: Denies: Headache, Weakness, Numbness Physical Exam Vital Signs/Narrative: Vital Signs Temp Pulse Resp BP Pulse Ox 08/24/20 16:34 97.7 F L 66 16 131/86 H 98 Inital Vital Signs reviewed: Yes Left Wrist: Abrasion, - - Small abrasion over the left wrist ulnar aspect without laceration. She moves her wrist in all directions without difficulty and without pain. Normal capillary refill and sensation all 5 fingers. Radial pulse normal. Normal range of motion actively of all 5 fingers. Right Hand: Abrasion - Patient has 3 lacerations to the right hand. She has a 1.5 cm laceration volar aspect right thumb between the MCP and IP joint. There is no active bleeding. She has normal active range of motion at her MCP joint and the IP joint of the right thumb. Capillary refill and sensation are normal. No nail injury. She has a small 1.5 cm laceration in the middle of her palm of the right hand without active bleeding. She has a 2.5 cm laceration to the right fifth finger on the ulnar aspect between the PIP and DIP joints. She has normal active range of motion with flexion and extension at the MCP, PIP and DIP joint. He has normal capillary refill and sensation. She has normal active range of motion of her second third and fourth fingers. She has normal active range of motion at her wrist. Radial pulses normal. General: Well nourished, Well developed Head: Normocephalic, Atraumatic Eyes: Perrl, EOMI ENT: No Trauma, Moist Mucous Membranes Neck: Nontender, Full ROM Cardiovascular: Regular rate, Regular rhythm, No murmurs Respiratory: No distress, CTA bilaterally, Chest nontender Abdomen: Soft, Nontender, Nondistended, Normal bowel sounds Back: Nontender Skin: Normal color, No rash, Trauma - 3 lacerations right hand and 1 abrasion left wrist as above Neurological: Alert, Oriented x3, Cranial nerves II-XII grossly intact, Normal Strength, Normal Sensation Psychological: Normal affect Diagnostic/Tx/Re-eval - Medical Decision Making Tetanus updated. Under sterile conditions lidocaine was used 1% plain without epinephrine to anesthetize all 3 lacerations to the right hand over the thumb, middle of her palm and the fifth finger. Total of about 3 cc lidocaine used. Each wound was irrigated via pressure wash syringe sterile saline 30 cc. Each wound explored. No foreign bodies are noted. No arterial or ligament injury or active arterial bleeding. The first laceration on the thumb was closed with 2 sutures simple interrupted Ethilon #5-0. 1 suture simple interrupted Ethilon #5?0 was used to close the middle of the palm. 3 sutures were used to close the wound on the fifth finger simple interrupted Ethilon number 5 days 0. Bacitracin and dressing applied. Patient tolerated well. The abrasion on her left wrist was bleeding while I was repairing the other 3 wounds on the right hand therefore I did cleanse it and then applied Dermabond which resolved the bleeding and a dressing was applied to that wound as well Patient will be discharged. Discussed with her signs of infection to monitor for. Discussed proper wound care. She will follow-up in 7 to 10 days for removal. Procedures - Lacerations No standard instances Length: 1.5 cm Depth: Skin Shape: Linear Prep: Sterile Conditions, Chlorhexadine Laceration Repair: Lidocaine, Local, Wound explored Irrigated (ml): 30 Number of Sutures/[place]: 2 Suture Information: Ethilon, Simple, 5-0 Procedure(s): There were a total of 3 lacerations repaired see medical decision making for procedure note ED Disposition - Plan for ED Patient: Disposition: Home or Assisted Living Diagnosis: laceration right fifth finger, laceration palm of right hand, laceration right thumb, Abrasion of left wrist Instructions: ED Abrasion, ED Laceration Ext Sutr Stap Tape Referrals: Wolfgang Hammond MD [Primary Care Provider] - 7 Days for suture removal
[2020-08-24] MEDS: Diphth,Pertuss(Acell),Tet Vac 0.5 ML Vial IM (17:28)
[2020-08-24] MEDS: BACITRACIN 15 GM Tube 1 APPLIC TOPICAL (17:44)
--- NOTE | 2020-08-24 17:52 | ED.VISSUMM ---
- ER Visit Summary Date of Service: 08/24/20 Chief Complaint: [] History of Present Illness: The patient is a 65 F [] Physical Examination: [] Test Results: [] Emergency Department Course and Treatment: [] Treatment Plan: [] Disposition: [] Impression: [] This note was generated with [employer] dictation software. It may contain incorrect words, spelling, and punctuation that were not noted in review of the chart prior to signing ED Disposition - Plan for ED Patient: Disposition: Home or Assisted Living Diagnosis: laceration right fifth finger, laceration palm of right hand, laceration right thumb, Abrasion of left wrist Instructions: ED Abrasion, ED Laceration Ext Sutr Stap Tape Prescriptions: Fexofenadine HCl [Indu Allergy] 180 mg PO DAILY #30 tab Transmission Status: Pending to [facility] #30 Amoxicillin 500 mg PO TID #30 tab Transmission Status: Pending to [facility] #30 Fluticasone Propionate [Flonase Allergy Relief] 9.9 ml NS DAILY #1 spray.susp Transmission Status: Pending to [facility] #30 Referrals: Wolfgang Hammond MD [Primary Care Provider] - 7 Days for suture removal
== END 2020-08-24 18:29 | disposition home or self-care (01) ==
PROVIDERS: Emergency Provider Physician Assistant Medical; PCP Family Medicine
DX: S61.011A Laceration without foreign body of right thumb without damage to nail, initial encounter (principal); S61.216A Laceration without foreign body of right little finger without damage to nail, initial encounter; S61.411A Laceration without foreign body of right hand, initial encounter; S60.812A Abrasion of left wrist, initial encounter; I10 Essential (primary) hypertension; E78.5 Hyperlipidemia, unspecified; J44.9 Chronic obstructive pulmonary disease, unspecified; I25.10 Atherosclerotic heart disease of native coronary artery without angina pectoris; Z86.711 Personal history of pulmonary embolism; Z87.891 Personal history of nicotine dependence; Z23 Encounter for immunization; W25.XXXA Contact with sharp glass, initial encounter; Y93.01 Activity, walking, marching and hiking; Y92.009 Unspecified place in unspecified non-institutional (private) residence as the place of occurrence of the external cause; Y99.8 Other external cause status
CPT/HCPCS: 12002; 90715; 99284

== ENCOUNTER → 2022-07-17 | Outpatient (CLI) | payer MEDICARE, MEDICAID, SELFPAY ==
--- NOTE | 2022-07-17 13:50 | CT_ITS ---
STUDY: CT MAXILLOFACIAL SINUSES REASON FOR EXAM: Female, 67 years old. CHRONIC SINUSITIS RADIATION DOSAGE (If Supplied By Facility): CTDIvol = ( 33.06 ) mGy, DLP = ( 714.02 ) mGycm TECHNIQUE: The patient was scanned in a multi detector CT scanner. High resolution axial imaging was performed without the administration of intravenous contrast material. Sagittal and coronal images were reconstructed. Individualized dose optimization techniques were used for this CT. COMPARISON: None. FINDINGS: FRONTAL SINUSES: Normal aeration, without mucosal inflammatory disease. ETHMOIDAL SINUSES: Mild degree of mucosal thickening of the ethmoid sinuses bilaterally. MAXILLARY SINUSES: There is opacification of the maxillary sinus bilaterally. SPHENOIDAL SINUSES: Normal aeration, without mucosal inflammatory disease. There is obliteration of the ostiomeatal complexes bilaterally due to mucosal hypertrophy. Hypertrophy of the middle turbinates bilaterally. Normal bilateral inferior turbinates. Normal midline nasal septum. There is patency of the bilateral nasal airways. The visualized osseous structures are normal. The visualized bilateral orbital contents are normal. Calcification of the carotid bifurcations bilaterally. CT/Sinus/Facial Bone IMPRESSION: Bilateral maxillary sinusitis. Mucosal thickening of the ethmoid sinuses bilaterally. Electronically Signed: Michael Clark MD at 14:26 EDT ,
== END | disposition home or self-care (01) ==
PROVIDERS: PCP Family Medicine; Referring Provider Otolaryngology; Visit Provider Otolaryngology
DX: J32.9 Chronic sinusitis, unspecified (principal)
CPT/HCPCS: 70486

== ENCOUNTER → 2022-07-21 | Outpatient (CLI) | payer MEDICARE, MEDICAID, SELFPAY | END | disposition home or self-care (01) | PROVIDERS: PCP Family Medicine; Visit Provider Otolaryngology | DX: J32.9 Chronic sinusitis, unspecified (principal) | CPT/HCPCS: 87070; 87205 ==

== ENCOUNTER 2022-08-07 12:59 | Emergency (ER) | payer MEDICARE, MEDICAID, SELFPAY ==
[2022-08-07 13:00] VITALS: BP 119/69; PULSE 74; RESP 18; TEMP 35.9; O2SAT 93; BMI 19.2
--- NOTE | 2022-08-07 13:37 | EDS_ITS ---
HPI History of Present Illness Chief Complaint: Edema Informant: patient Onset/Context/Timing Onset: Yesterday Context: Gradual Onset Timing: Continuous Quality: sore, swollen, red Location: R face Current Severity: Moderate Maximum Severity: Moderate Worsened by: palpation Relieved by: leaving alone Associated Symptoms Associated Symptoms: none Narrative Narrative: Patient states she is scheduled to have a balloon sinuplasty right maxillary sinus, she has had chronic rhinorrhea, pain in her right maxilla especially when she chews, she presents with 1 to 2 days of pain, swelling, redness in her right face. No fevers or chills. No vision trouble. [facility] Medical History Anxiety Hyperlipidemia Hypertension Hypothyroidism Kidney stones Osteoporosis Pulmonary embolism Home Medications Omeprazole [Prilosec] 40 mg PO DAILY GI 12/07/13 [History Last Taken 12/14/13 05:30 40 MG] alendronate 70 mg tablet 70 mg PO Q7D@0700 osteo 12/07/13 [History Last Taken Unknown] levothyroxine 100 mcg tablet 100 mcg PO DAILY thyroid 12/07/13 [History Last Taken 12/14/13 05:30 100 MCG] loratadine 10 mg tablet (Allergy Relief (loratadine)) 10 mg PO DAILY allergies 12/07/13 [History Last Taken Unknown] metoprolol succinate 25 mg tablet,extended release 24 hr 25 mg PO DAILY BP 12/07/13 [History Last Taken 12/14/13 05:30 25 MG] multivitamin with folic acid 400 mcg tablet (Thera) 1 tab PO DAILY multivitamin 12/07/13 [History Last Taken Unknown] pravastatin 80 mg tablet 80 mg PO QHS heart 12/07/13 [History Last Taken Unknown] gabapentin 100 mg capsule 100 mg PO TIDCM nerve pain 05/11/18 [History Last Taken Unknown] Venlafaxine HCl ER 150 mg PO DAILY smoking 12/11/19 [History Last Taken Unknown] fluticasone propionate 50 mcg/actuation nasal spray,suspension 2 spray NASAL DAILY dry nares 12/11/19 [History Last Taken Unknown] oxybutynin chloride 15 mg tablet,extended release 24 hr 15 mg PO DAILY urinary 12/11/19 [History Last Taken Unknown] apixaban 5 mg tablet 5 mg PO BID PE 12/21/19 [History Last Taken Unknown] budesonide 3 mg capsule,delayed,extended release 6 mg PO DAILY Asthma 12/21/19 [History Last Taken Unknown] acetaminophen 500 mg tablet 1,000 mg PO Q6H PRN PRN Pain Score 1-09/0112/30/19 [Rx Last Taken Unknown] apixaban 5 mg tablet 5 mg PO BID #60 tabs 12/30/19 [Rx Last Taken Unknown] budesonide 3 mg capsule,delayed,extended release 6 mg PO DAILY 12/30/19 [Rx Last Taken Unknown] amoxicillin 500 mg tablet 500 mg PO TID #30 tabs 08/24/20 [Rx Last Taken Unknown] fexofenadine 180 mg tablet 180 mg PO DAILY #30 tabs 08/24/20 [Rx Last Taken Unknown] fluticasone propionate 50 mcg/actuation nasal spray,suspension 9.9 ml NS DAILY ##1 08/24/20 [Rx Last Taken Unknown] amoxicillin 875 mg-potassium clavulanate 125 mg tablet 875 mg PO Q12H #20 TABLETS 08/07/22 [Rx Last Taken Unknown] Allergy/AdvReac Type Severity Reaction Status Date / Time azithromycin [From Zithromax] Allergy Hives Verified 08/07/22 13:00 Sulfa (Sulfonamide Allergy Hives Verified 08/07/22 13:00 Antibiotics) Surgical History (Updated 08/07/22 @ 13:36 by Dalia Moore) History of appendectomy History of hysterectomy History of tonsillectomy Social History Smoking Status: Current every day smoker tobacco type: cigarettes ROS ROS ED Constitutional Constitutional ED: Denies chills or fever(s) Eyes Eyes: Denies blurry vision, change in vision or diplopia ENT ENT ED: Reports as per HPI, facial pain and rhinorrhea; Denies ear pain, epistaxis or sore throat Cardiovascular Cardiovascular: Denies chest pain or palpitations Respiratory/Chest Respiratory/Chest: Denies cough or dyspnea Gastrointestinal Gastrointestinal: Denies diarrhea or vomiting Neurologic Neurologic: Denies headache(s), paresthesias or weakness EXAM Physical Exam Const Vital Signs: 08/07/22 13:00 08/07/22 13:32 Temperature 96.7 F L Temperature Source Temporal Pulse Rate 74 Respiratory Rate 18 Respiratory Effort Normal Non-Labored Respiratory Pattern Normal Blood Pressure 119/69 Blood Pressure Mean 85 Pulse Ox 93 Oxygen Delivery Method Room Air Positive well nourished and well developed General Appearance ED: well developed and NAD HEENT Reports moist mucous membranes and dry mucous membranes HEENT Narrative: Erythema blanches, tenderness, swelling right upper mid face including the lower eyelid. No upper eyelid abnormality. Eye is normal. Most of the tenderness is at the nasolabial fold to the right of the nasal bridge. It is focally swollen. No fluctuance. No nasal purulent discharge, no significant turbinate edema. No trismus. Edentulous, tender right mid and posterior maxillary gingiva which are normal-appearing without signs of infection or abscess. Mouth ED: Yes dry mucous membranes Mouth: dry mucous membranes Eyes PERRL and EOMs intact bilaterally Eyes Narrative: No pain with extraocular movements. Globe normal. Conjunctive are normal. Neck no lymphadenopathy and supple Chest Wall inspection of chest normal and palpation of chest normal Neuro oriented x3, CN's II-XII intact bilaterally and no sensory deficits noted Neuro Narrative: No motor deficits Psych mental status grossly normal Skin no wounds Skin Narrative: Erythema without any other skin lesion right face see above MDM MDM MDM Narrative Medical decision making narrative: Appears to be most consistent with cellulitis. We will place her on Augmentin and have her follow-up with ENT. Angular vein thrombosis is in the differential diagnosis here, but this seems to be more like a focal infection near the nasolabial fold. I do not think it is necessarily amenable to incision and drainage at this time, we discussed reasons to return she is comfortable with that plan. Discharge Plan Triage Chief Complaint: Edema ED Provider: Ruddy Chapman Dx/Rx/DC Orders Clinical Impression: Cellulitis of face Instructions: ED Cellulitis, Facial Prescriptions: New amoxicillin-pot clavulanate [amoxicillin-pot clavulanate] 875-125 mg tablet 875 mg PO Q12H Qty: 20 0RF No Action alendronate 70 MG tablet 70 mg PO Q7D@0700 levothyroxine 100 MCG tablet 100 mcg PO DAILY pravastatin 80 MG tablet 80 mg PO QHS metoprolol succinate 25 MG tablet 25 mg PO DAILY loratadine [Allergy Relief (loratadine)] 10 MG tablet 10 mg PO DAILY multivitamin with folic acid [Thera] 1 TABLET tablet 1 tab PO DAILY Omeprazole [Prilosec] 40 MG capsule 40 mg PO DAILY gabapentin 100 MG capsule 100 mg PO TIDCM oxybutynin chloride 15 MG tablet extended release 24hr 15 mg PO DAILY fluticasone propionate 1 SPRAY spray,suspension 2 spray NASAL DAILY Venlafaxine HCl ER 150 mg PO DAILY apixaban 5 MG tablet 5 mg PO BID budesonide 3 MG capsule,delayed,extend.release 6 mg PO DAILY acetaminophen 500 MG tablet 1,000 mg PO Q6H PRN PRN (Reason: Pain Score 1-10/10) 0RF budesonide 3 MG capsule,delayed,extend.release 6 mg PO DAILY 0RF apixaban 5 MG tablet 5 mg PO BID Qty: 60 0RF fexofenadine 180 MG tablet 180 mg PO DAILY Qty: 30 0RF amoxicillin 500 MG tablet 500 mg PO TID Qty: 30 0RF fluticasone propionate 9.9 ML spray,suspension 9.9 ml NS DAILY Qty: 1 0RF Primary Care Provider: Wolfgang Hammond Referrals: Murphy Mcknight MD [Med Staff - Active Staff] - 3-5 Days if not improving Wolfgang Hammond MD [Primary Care Provider] - Disposition Disposition: Home, Self Care
== END 2022-08-07 14:06 | disposition home or self-care (01) ==
PROVIDERS: Emergency Provider Emergency Medicine; PCP Family Medicine; Visit Provider Emergency Medicine
DX: L03.211 Cellulitis of face (principal); R60.9 Edema, unspecified; R51.9 Headache, unspecified; I10 Essential (primary) hypertension; E78.5 Hyperlipidemia, unspecified; F17.210 Nicotine dependence, cigarettes, uncomplicated; Z79.899 Other long term (current) drug therapy
CPT/HCPCS: 99282

== ENCOUNTER → 2022-09-10 | Outpatient (CLI) | payer MEDICARE, MEDICAID, SELFPAY | END | disposition home or self-care (01) | LOC: LABSPEC 15:24 | PROVIDERS: PCP Family Medicine; Visit Provider Otolaryngology | DX: J32.9 Chronic sinusitis, unspecified (principal) | CPT/HCPCS: 87070; 87077; 87186; 87205 ==

== ENCOUNTER 2022-11-04 15:42 | Observation (INO) | payer MEDICARE, MEDICAID, SELFPAY ==
[2022-11-04] VITALS (35 sets, daily range): BP systolic 102–187; BP diastolic 53–86; PULSE 54–94; RESP 15–18; TEMP 36.1–36.3; O2SAT 83–97; BMI 23.6; BMI 25.3
--- NOTE | 2022-11-04 07:42 | EKG12_ITS ---
Test Reason : PRE OP Blood Pressure : / mmHG Vent. 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
[2022-11-04] MEDS: Lactated Ringers 1,000 ML 15 ML IV (08:28)
[2022-11-04 08:39] LABS: Hematocrit 40.6 % (37-47); Hemoglobin 13.5 g/dL (12.0-15.0); Mean Corp Hgb Conc 33.3 g/dL (32-36); Mean Corpuscular Hgb 31.8 pg (27.0-32.0); Mean Corpuscular Volume 95.8 fL (81-99); Mean Platelet Vol. 10.5 fl (6.2-12.0); Platelet Count 292 K/mm3 (150-450); RBC Distribution Width SD 48.6 fl (35.1-43.9); Red Blood Count 4.24 M/mm3 (4.2-5.4); White Blood Count 13.3 K/mm3 (4.4-11.0)
--- NOTE | 2022-11-04 09:05 | ETH_PTH ---
PATIENT: ADRIANA LOWERY LOC: [facility] U#:[id number] AGE/SX: 67/F ROOM: [facility] RE11/04/[address]: Dr. Murphy Mcknight MD : [id number] BED: 1 DIS: 11/05/2022 SPEC #: [id number] RECD: 11/04/22 14:56 STATUS: YADIRA CHA #: [id number] ANDREW: 11/04/22 09:[address]: Murphy Mcknight DEPT: SURGICAL PATHOLOGY RECD BY: Huseyin Atwood ENTERED: 11/05/22 10:06 SP TYPE: ETH TISS OTHR DR: MD Dr. Waylon Morris MD Tissues: A - Ethmoid sinus, NOS B - Ethmoid sinus, NOS Procedures: Decalcification bone/plaque Surgery Specimen Level IV HEADER OPERATION: Functional endoscopic sinus surgery, Navigation and septoplasty PRE-OP DIAGNOSIS: Chronic sinusitis, deviated nasal septum TISSUE SUBMITTED: A ? Left sinus contents, B ? Right sinus contents MICROSCOPIC DIAGNOSIS A. Left sinus contents: Fragments of respiratory mucosa with chronic inflammation and bone. B. Right sinus contents: Fragments of respiratory mucosa with chronic inflammation and bone. SJ:rg 11/10/2022 COMMENT Case has been reviewed in consultation with Dr. Moura who concurs with the above diagnosis. IDC:AM MICROSCOPIC DESCRIPTION Slides are reviewed. GROSS DESCRIPTION A - Received in fixative is one container labeled with the patient's name and designated left sinus contents. The specimen consists of multiple irregular and gritty fragments of light to dark oden soft tissue that in aggregate measure 5 x 3 x 0.2 cm. The specimen is totally submitted in two cassettes after decalcification. B - Received in fixative is one container labeled with the patient's name and designated right sinus contents. The specimen consists of multiple irregular and gritty fragments of light to dark oden soft tissue that in aggregate measure 5 x 3 x 0.2 cm. The specimen is totally submitted in two cassettes after decalcification. / AM:alyssa 11/05/2022 TC:3 CPT: 36067 x2, 99605 x2
--- NOTE | 2022-11-04 09:07 | DCINST_ITS ---
Discharge Instructions Diet Discharge Diet: No restrictions Activity Discharge Activity: Return to Normal Activity Dressing / Incision Call your doctor if your incision/area has: Sudden Increased Bleeding Additional Dressing/Incision Instructions:: saline to nose 5 times daily. mupirocin to nose twice daily. Follow Up Care Please Follow Up With: Murphy Mcknight MD When: 1 week Test Results: Test results from this visit will be discussed in further detail at your follow- up appointment, if applicable. Discharge Plan Admission Attending Provider: Murphy Mcknight Primary Care Provider: Wolfgang Hammond Discharge Orders/Prescriptions Prescriptions: No Action alendronate 70 MG tablet 70 mg PO Q7D@0700 levothyroxine 100 MCG tablet 100 mcg PO DAILY pravastatin 80 MG tablet 80 mg PO QHS metoprolol succinate 25 MG tablet 25 mg PO DAILY multivitamin with folic acid [Thera] 1 TABLET tablet 1 tab PO DAILY Omeprazole [Prilosec] 40 MG capsule 40 mg PO DAILY gabapentin 100 MG capsule 100 mg PO TIDCM oxybutynin chloride 15 MG tablet extended release 24hr 15 mg PO DAILY fluticasone propionate 1 SPRAY spray,suspension 2 spray NASAL DAILY Venlafaxine HCl ER 150 mg PO DAILY acetaminophen 500 MG tablet 1,000 mg PO Q6H PRN PRN (Reason: Pain Score 1-10/10) 0RF apixaban 5 MG tablet 5 mg PO BID Qty: 60 0RF amoxicillin-pot clavulanate [amoxicillin-pot clavulanate] 875-125 mg tablet 875 mg PO Q12H Qty: 20 0RF Referrals / Follow Up: Wolfgang Hammond MD [Primary Care Provider] - Disposition Disposition (needs filled in before D/C Order can be placed): Home, Self Care
--- NOTE | 2022-11-04 09:08 | OP.PCM_ITS ---
Problems Associated Problem List Diagnoses (1) Chronic pansinusitis: (2) Nasal congestion: (3) Nasal septal deviation: (4) Hypertrophy of inferior nasal turbinate: Report of Operation Date of Procedure: 11/04/22 Pre-Operative Diagnosis: 1. nasal congestion 2. nasal septal deviation 3. inferior turbinate hypertrophy, right and left 4. chronic pansinusitis Post-Operative Diagnosis: 1. nasal congestion 2. nasal septal deviation 3. inferior turbinate hypertrophy, right and left 4. chronic pansinusitis Surgery/Procedure Performed:: 1. endoscopic maxillary antrostomy with removal of contents, right and left 2. endoscopic total ethmoidecotmy, right and left 3. endoscopic sphenoidotomy with removal of contents, right and left 4. endoscopic frontal sinus exploration removal of contents, right and left 5. septoplasty 6. submucous and bony resection inferior turbinates, right and left Surgeon: Murphy Mcknight Type of Anesthesia: General Description of Procedure: On the day of the procedure, after appropriate informed consent was obtained, the patient was brought to the operating room and placed in a supine position on the operating room table. The patient was placed under general endotracheal anesthesia by the anesthesiologist. The endotracheal tube was secured.? image guidance navigation was set up on the face and accuracy was confirmed.? the nose was injected with lidocaine/epinephrine and decongested with oxymetazoline- soaked pledgets.? a marginal incision was made with a #15 blade on the left side.? a submucoperichondrial plane was developed on the patient's left side with a destiny elevator.? this was taken posteriorly to the bony/cartilaginous junction and inferiorly to the maxillary crest.? after an L-strut was marked, a large rightward defection was removed with a D-knife and tommy driver.? the head of the right and left turbinates were injected with lidocaine/epinephrine.? the head of the left inferior turbinate was incised with a 15 blade, dissected submucosally with a destiny elevator, reduced using suction electrocautery and outfractured using a boies elevator. bony reduction was performed with a thru cut the head of the right inferior turbinate was incised with a 15 blade, dissected submucosally with a destiny elevator, reduced using suction electrocautery and outfractured using a boies elevator.? bony reduction was performed with a thru cut. the zero degree endoscope was used to evaluate the nasal cavity.? the superior attachment of the right and left middle turbinate and uncinate processes were injected with lidocaine/epinephrine.? the left nasal cavity was evaluated.? the middle turbinate was medialized.? a maxillary antrostomy and uncinectomy were performed with a destiny elevator and a samy cut.? the antrostomy was widened with a back-biter.? purulent material was evacuated.? the ethmoid bulla was entered bluntly with the suction.? a total ethmoidectomy was performed with a curette and an upgoing blakesley.? this was taken superiorly to the skull base and laterally to the lamina.? a stankewicz maneuver was performed and no laminar defect was noted.? the natural sphenoid os was widened with the microdebrider and contents were evacuated.? fungus was removed from the sphenoethmoidal recess.? the frontal recess was explored and contents were evacuated.? h emostasis was achieved with suction cautery; kalpesh was placed. the right nasal cavity was evaluated.? the middle turbinate was medialized.? a maxillary antrostomy and uncinectomy were performed with a destiny elevator and a samy cut.? the antrostomy was widened with a back-biter.? purulent material was evacuated.? the ethmoid bulla was entered bluntly with the suction.? a total ethmoidectomy was performed with a curette and an upgoing blakesley.? this was taken superiorly to the skull base and laterally to the lamina.? a stankewicz maneuver was performed and no laminar defect was noted.? the natural sphenoid os was widened with the microdebrider and contents were evacuated.? fungus was removed from the sphenoethmoidal recess.? the frontal recess was explored and contents were evacuated.? hemostasis was achieved with suction cautery; kalpesh was placed. ruvalcaba splints were sutured into place.? a nasogastric tube was inserted orally and contents were evacuated.? the table was rotated 90 degrees toward the anesthesiologist and? was subsequently extubated uneventfully.? he was transferred to the PACU in stable condition.
[2022-11-04 09:09] LABS: AST(SGOT) 10 U/L (15-37); Alanine Aminotransfer ALT/SGPT 16 U/L (13-56); Albumin, Serum 3.3 g/dL (3.2-5.0); Alkaline Phosphatase 89 U/L (45-117); Anion Gap 4 (5-15); BUN 21 mg/dL (7-18); BUN/Creat Ratio 23.4 RATIO (10-20); Bilirubin, Direct 0.08 mg/dL (0.00-0.30); Calcium,Total 8.9 mg/dL (8.5-10.1); Chloride 111 mmol/L (98-107); EST Glomerular Filtration Rate 66 mL/min (>60); Est Glom Filt Rate - Afr Amer 80 mL/min (>60); Estimated Creatinine Clearance 46.66 ml/min; Globulin 3.3 g/dL (2.2-4.2); Glucose 108 mg/dL (74-106); Protein, Total 6.6 g/dL (6.4-8.2); Sodium Level 142 mmol/L (136-145); Thyroid Stim Hormone (TSH) 0.21 uIU/mL (0.358-3.74)
[2022-11-04] MEDS: Lidocaine 2% /Epi 1:100 (20ml) 20 ML VIAL (09:34)
[2022-11-04] MEDS: Oxymetazoline 0.05% 1 SPRAY SPRAY.BTL 15 SPRAY ×2 (09:52→11:01)
[2022-11-04] MEDS: Mupirocin Ointment 22gm Tube 1 APPLIC (11:29)
--- NOTE | 2022-11-04 16:05 | SUR.PHASEI ---
DR. PAEZ TO ADMIT PT, PT FAMILY UPDATED OF PT STATUS.
--- NOTE | 2022-11-04 18:10 | CT_ITS ---
STUDY: CTA CHEST REASON FOR EXAM: Female, 67 years old. Resp failure RADIATION DOSAGE (If Supplied By Facility): CTDIvol = ( 18.72 ) mGy, DLP = ( 202.55 ) mGycm TECHNIQUE: The examination was performed with the intravenous administration of 100mL Isovue-370. Post-processing of the angiographic images was performed, with multiplanar reformation and 3D reconstruction. Individualized dose optimization techniques were used for this CT. COMPARISON: December 11, 2019 FINDINGS: Normal enhancement of the main pulmonary artery and right and left pulmonary arteries. Normal enhancement of the bilateral peripheral pulmonary arteries. There is no demonstrated pulmonary embolism. There is atherosclerotic calcification of the aortic arch with tortuosity. There is no demonstrated aortic dissection. There are calcifications of the coronary arteries. Normal mediastinum. Normal hilar regions. Normal visualized trachea and bronchi. The lungs are well expanded. There is right mid and bilateral lower lung airspace consolidation. Normal pleura. Normal chest wall structures. There are degenerative changes of thoracic spine. Normal visualized upper abdomen. CT/CTA Chest W/WO Contrast IMPRESSION: CTA chest examination, without a demonstrated pulmonary embolism or arterial dissection. Right mid and bilateral lower lung airspace consolidation. Electronically Signed: Ruddy Powell MD at 21:24 [facility] ,
--- NOTE | 2022-11-04 18:20 | SUR.PHASEI ---
spoke with family, pt has room however it is not clean yet, will give them a call back when that is ready.
[2022-11-04] MEDS: Ondansetron 4 MG/2 ML Vial IV (18:43)
--- NOTE | 2022-11-04 21:26 | CON.PCM.HO_ITS ---
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 Mcknight #tobacco use refused nicotine patch #DVT ppx: SCDs Penny Malloy MD HPI Consult Data Date of Consult: 11/05/22 HPI Narrative Reason for Consultation: Hypoxia HPI Narrative: ADRIANA LOWERY, is a 67 F with a past medical history of chronic pansinusitis, GERD, hypertension colic congestive heart failure, hypothyroidism, pulmonary emboli on chronic this, diabetes mellitus, RA who presented to [facility] 11/04 for endoscopic exploration and removal of contents of her sinuses as well as septoplasty performed by Dr. Mcknight. In the postop period she was noted to have dip in O2 and required 4 L nasal cannula administered through mouth to maintain sats. She was admitted for observation for this and [facility] consulted. She was evaluated on the floor and O2 saturation with nasal cannula in nose was mid 80s but once it was placed in her mouth it was mid 90s, Ventimask placed and O2 sats improved and maintained in the mid 90s. She denied any change in cough or shortness of breath. Does smoke chronically 1 pack a day and this has not changed recently. Has had her Eliquis held since Thursday due to the impending surgery so CTA was obtained but no clots were noted. She was demonstrated to have right mid and bilateral lower lung airspace consolidation however. [facility] Medical History (Updated 11/04/22 @ 09:[address] Murphy Mcknight MD) Altered gait Anxiety Arthritis Bladder disease Cardiology follow-up encounter Depression Easy bruising Gastric reflux History of echocardiogram History of stress test Hyperlipidemia Hypertension Hypothyroidism Kidney stones Migraine headache Osteoporosis Pulmonary embolism Shortness of breath on exertion Smoker Syncope Wears dentures Wears glasses Home Medications Omeprazole [Prilosec] 40 mg PO DAILY GI 12/07/13 [History Last Taken 11/04/22 05:00] alendronate 70 mg tablet 70 mg PO Q7D@0700 osteo 12/07/13 [History Last Taken Unknown] levothyroxine 100 mcg tablet 100 mcg PO DAILY thyroid 12/07/13 [History Last Taken 11/04/22 05:00] metoprolol succinate 25 mg tablet,extended release 24 hr 25 mg PO DAILY BP 12/07/13 [History Last Taken 11/04/22 05:00] multivitamin with folic acid 400 mcg tablet (Thera) 1 tab PO DAILY multivitamin 12/07/13 [History Last Taken Unknown] pravastatin 80 mg tablet 80 mg PO QHS heart 12/07/13 [History Last Taken Un known] gabapentin 100 mg capsule 100 mg PO TIDCM nerve pain 05/11/18 [History Last Taken 11/04/22 05:00] Venlafaxine HCl ER 150 mg PO DAILY DEPRESSION 12/11/19 [History Last Taken Unknown] fluticasone propionate 50 mcg/actuation nasal spray,suspension 2 spray NASAL DAILY dry nares 12/11/19 [History Last Taken Unknown] oxybutynin chloride 15 mg tablet,extended release 24 hr 15 mg PO DAILY urinary 0 12/11/19 [History Last Taken Unknown] acetaminophen 500 mg tablet 1,000 mg PO Q6H PRN PRN Pain Score 1-1010 12/30/19 [Rx Last Taken Unknown] apixaban 5 mg tablet 5 mg PO BID #60 tabs 12/30/19 [Rx Last Taken 10/31/22] amoxicillin 875 mg-potassium clavulanate 125 mg tablet 875 mg PO Q12H #20 TABLETS 08/07/22 [Rx Last Taken Unknown] Allergy/AdvReac Type Severity Reaction Status Date / Time azithromycin [From Zithromax] Allergy Hives Verified 11/04/22 07:52 Sulfa (Sulfonamide Allergy Hives Verified 11/04/22 07:52 Antibiotics) Iodinated Contrast Media AdvReac Vomiting Verified 11/04/22 07:52 [iodine contrast] Surgical History (Updated 11/03/22 @ 14:42 by Tonia Bolton) History of hysterectomy History of tonsillectomy Social History Smoking Status: Current every day smoker tobacco type: cigarettes ROS Constitutional Constitutional: Denies change in weight, chills, fever(s) or night sweats Eyes Eyes: Denies change in vision ENT HEENT: Reports other Details: + Chronic nasal congestion Cardiovascular Cardiovascular: Denies chest pain or palpitations Respiratory/Chest Respiratory/Chest: Reports other Details: Minimal intermittent cough, unchanged, no change in breathing reported Gastrointestinal Gastrointestinal: Reports other Details: denies changes in bowel or bladder ; Denies abdominal pain Genitourinary Genitourinary: Reports other Details: denies changes in urination Musculoskeletal Musculoskeletal: Denies joint pain Neurologic Neurologic: Denies dizziness, focal weakness, headache(s), numbness or tingling Psychiatric Psychiatric: Denies anxiety Hematologic/Lymphatic Hematologic/Lymphatic: Denies easy bleeding Allergic/Immunologic Allergic/Immunologic: Reports other Details: denies rashes Physical Exam Const alert and no apparent distress Constitutional Narrative: Oriented HEENT normocephalic and head/scalp atraumatic Eyes Eyes Narrative: EOM grossly intact, anicteric Neck supple Resp normal respiratory effort Resp Narrative: Faint wheezes in upper lung celis, slight crackles at the bases bilaterally Cardio regular rate and regular rhythm GI soft to palpation, non-tender and non-distended Extremity Extremity Narrative: No edema appreciated Neuro moves all extremities Neuro Narrative: No overt focal deficits appreciated Psych Psych Narrative: Cooperative Lab / Micro Data Result Diagrams: 11/04/22 08:20 11/04/22 08:20 Labs: Laboratory Results - last 24 hr 11/04/22 08:20: WBC 13.3 H, RBC 4.24, Hgb 13.5, Hct 40.6, MCV 95.8, MCH 31.8, MCHC 33.3, RDW Std Deviation 48.6 H, RDW Coeff of Louis 14.0, Plt Count 292, MPV 10.5 11/04/22 08:20: PT 13.0, INR 1.0, APTT 27.0 11/04/22 08:20: Sodium 142, Potassium 4.0, Chloride 111 H, Carbon Dioxide 27.0, Anion Gap 4 L, BUN 21 H, Creatinine 0.90, Estim Creat Clear Calc 46.66, Est GFR (MDRD) Af Amer 80, Est GFR (MDRD) Non-Af 66, BUN/Creatinine Ratio 23.4 H, G lucose 108 H, Calcium 8.9, Total Bilirubin 0.20, Direct Bilirubin 0.08, AST 10 L , ALT 16, Alkaline Phosphatase 89, Total Protein 6.6, Albumin 3.3, Globulin 3.3, TSH 0.21 L Radiology Impression Chest CTA 11/04/22 18:10 IMPRESSION: CTA chest examination, without a demonstrated pulmonary embolism or arterial dissection. Right mid and bilateral lower lung airspace consolidation. Electronically Signed: Ruddy Powell MD at 21:24 EST , Charges/Coding Visit Charges Office Visits / Consults: [id number] IP Consult L3
[2022-11-04] MEDS: Pravastatin 80 MG Tablet PO (21:37)
[2022-11-04] MEDS: Ipratropium/Albuterol Sulfate 3 ML AMPUL.NEB INHALATION (22:34)
[2022-11-05] VITALS (11 sets, daily range): BP systolic 115–127; BP diastolic 57–62; PULSE 61–68; RESP 16–20; TEMP 36.2–36.6; O2SAT 85–97
[2022-11-05] MEDS: guaiFENesin 1,200 MG Tablet 1200 MG PO ×2 (02:59→08:20)
[2022-11-05] MEDS: Ipratropium/Albuterol Sulfate 3 ML AMPUL.NEB INHALATION ×3 (03:00→13:35)
[2022-11-05] MEDS: 0.9% Saline Lock 10 ML Syringe IV (04:15)
[2022-11-05 05:13] LABS: Basophil# 0.03 X10^3/uL; Basophil% 0.2 % (0-1); Eosinophil# 0.01 X10^3/uL; Eosinophils% 0.1 % (0-5); Hematocrit 35.3 % (37-47); Hemoglobin 11.6 g/dL (12.0-15.0); Mean Corp Hgb Conc 32.9 g/dL (32-36); Mean Corpuscular Hgb 31.4 pg (27.0-32.0); Mean Corpuscular Volume 95.7 fL (81-99); Mean Platelet Vol. 10.8 fl (6.2-12.0); NRBC Flagged by Analyzer 0 % (0-5); Neutrophil # 13.02 X10^3/uL (2.7-7.7); Neutrophil % 82.1 % (47-70); Platelet Count 236 K/mm3 (150-450); RBC Distribution Width SD 49.4 fl (35.1-43.9); Red Blood Count 3.69 M/mm3 (4.2-5.4); White Blood Count 15.9 K/mm3 (4.4-11.0)
[2022-11-05 05:39] LABS: ALB/GLOB Ratio 0.9 RATIO (0.9-2.4); AST(SGOT) 7 U/L (15-37); Alanine Aminotransfer ALT/SGPT 13 U/L (13-56); Albumin, Serum 2.6 g/dL (3.2-5.0); Alkaline Phosphatase 68 U/L (45-117); Anion Gap 7 (5-15); BUN 13 mg/dL (7-18); Calcium,Total 8.5 mg/dL (8.5-10.1); Chloride 105 mmol/L (98-107); Creatinine, Serum 0.68 mg/dL (0.55-1.02); EST Glomerular Filtration Rate 91 mL/min (>60); Est Glom Filt Rate - Afr Amer 110 mL/min (>60); Estimated Creatinine Clearance 41.99 ml/min; Glucose 129 mg/dL (74-106); Potassium 3.6 mmol/L (3.5-5.1); Protein, Total 5.6 g/dL (6.4-8.2); Sodium Level 140 mmol/L (136-145); T4 Free Direct 1.56 ng/dL (0.76-1.46)
[2022-11-05] MEDS: Levothyroxine 100 MCG Tablet PO (06:46)
--- NOTE | 2022-11-05 08:09 | PN_ITS ---
Objective Data Objective Data no events overnight. no desaturations with supplemental 02. CTA negative for PE. Vital Signs: Vital Signs Temp Pulse Resp BP Pulse Ox O2 Del Method O2 Flow Rate 97.7 F L 61 16 127/62 H 95 Venturi Mask 6 11/05/22 06:49 11/05/22 07:46 11/05/22 07:46 11/05/22 06:49 11/05/22 07:46 11/05/22 07:46 11/05/22 07:46 FiO2 31 11/05/22 07:46 Oxygen Flow Rate (L/min) 6 Oxygen Delivery Method Venturi Mask Weight: 62.8 kg Body Mass Index (BMI) 25.3 Intake & Output: Intake and Output for Last 24 Hours 11/03/22 11/04/22 11/05/22 23:59 23:59 23:59 Intake Total 1999 50 / 50 Balance 1999 50 / 50 Lab / Micro Data Result Diagrams: 11/05/22 04:33 11/05/22 04:33 Labs: Laboratory Results - last 24 hr 11/04/22 08:20: WBC 13.3 H, RBC 4.24, Hgb 13.5, Hct 40.6, MCV 95.8, MCH 31.8, MC HC 33.3, RDW Std Deviation 48.6 H, RDW Coeff of Louis 14.0, Plt Count 292, MPV 10.5 11/04/22 08:20: PT 13.0, INR 1.0, APTT 27.0 11/04/22 08:20: Sodium 142, Potassium 4.0, Chloride 111 H, Carbon Dioxide 27.0, Anion Gap 4 L, BUN 21 H, Creatinine 0.90, Estim Creat Clear Calc 46.66, Est GFR (MDRD) Af Amer 80, Est GFR (MDRD) Non-Af 66, BUN/Creatinine Ratio 23.4 H, Glucose 108 H, Calcium 8.9, Total Bilirubin 0.20, Direct Bilirubin 0.08, AST 10 L, ALT 16, Alkaline Phosphatase 89, Total Protein 6.6, Albumin 3.3, Globulin 3.3, TSH 0.21 L 11/05/22 04:33: WBC 15.9 H, RBC 3.69 L, Hgb 11.6 L, Hct 35.3 L, MCV 95.7, MCH 31.4, MCHC 32.9, RDW Std Deviation 49.4 H, RDW Coeff of Louis 14.0, Plt Count 236, MPV 10.8, Immature Gran % (Auto) 0.600, Neut % (Auto) 82.1 H, Lymph % (Auto) 12.0 L, [place] % (Auto) 5.0, Eos % (Auto) 0.1, Baso % (Auto) 0.2, Absolute Neuts (auto) 13.0 H, Absolute Lymphs (auto) 1.90, Nucleated RBC % 0 11/05/22 04:33: Sodium 140, Potassium 3.6, Chloride 105, Carbon Dioxide 28.0, Anion Gap 7, BUN 13, Creatinine 0.68, Estim Creat Clear Calc 41.99, Est GFR (MDRD) Af Amer 110, Est GFR (MDRD) Non-Af 91, BUN/Creatinine Ratio 19.0, Glucose 129 H, Calcium 8.5, Total Bilirubin 0.20, AST 7 L, ALT 13, Alkaline Phosphatase 68, Total Protein 5.6 L, Albumin 2.6 L, Globulin 3.0, Albumin/Globulin Ratio 0.9, Free T4 1.56 H Micro: Microbiology 11/04/22 20:43 Nasal Secretion SARS-CoV-2 & FLU Antigen (Rapid) - Final Radiography Diagnostic Testing: Radiology Impression Chest CTA 11/04/22 18:10 IMPRESSION: CTA chest examination, without a demonstrated pulmonary embolism or arterial dissection. Right mid and bilateral lower lung airspace consolidation. Electronically Signed: Ruddy Powell MD at 21:24 EST , Physical Exam Const alert General Appearance: cooperative HEENT normocephalic HEENT Narrative: ruvalcaba splints in place, anterior crusting. Assessment & Plan Assessment/Plan (1) Chronic pansinusitis: PLAN: Plan s/p FESS complicated with postoperative hypoxemia -CTA negative -wean 02 per hospitalist, may be discharged from ENT standpoint -saline to nostrils
[2022-11-05] MEDS: Gabapentin 100 MG Capsule PO ×2 (08:20→12:12)
[2022-11-05] MEDS: Metoprolol(XL)Succ 25 MG Tablet PO (08:20)
[2022-11-05] MEDS: Venlafaxine XR 150 MG Capsule PO (08:20)
[2022-11-05] MEDS: Doxycycline 100 MG CAPSULE PO (08:20)
[2022-11-05] MEDS: Pantoprazole Sodium 40 MG Tablet PO (08:20)
[2022-11-05] MEDS: Tolterodine Tartrate 4 MG CAP.SA PO (08:21)
[2022-11-05] MEDS: Sodium Chloride 0.65% 1 SPRAY SPRAY.BTL NASAL ×2 (09:12→12:12)
--- NOTE | 2022-11-05 10:18 | PN.HOSP_ITS ---
Subjective Subjective Follow-up for mild hypoxia Objective Data Objective Data Vital Signs: Vital Signs Temp Pulse Resp BP Pulse Ox O2 Del Method O2 Flow Rate 97.2 F L 68 16 123/59 H 97 Nasal Cannula 1 11/05/22 09:15 11/05/22 13:36 11/05/22 13:36 11/05/22 09:15 11/05/22 13:36 11/05/22 13:36 11/05/22 13:36 FiO2 31 11/05/22 07:46 Oxygen Flow Rate (L/min) [ 2 AMBULATING with Oxygen #1] Oxygen Flow Rate (L/min) [At 2 REST with Oxygen] Oxygen Flow Rate (L/min) 1 Oxygen Delivery Method Nasal Cannula Weight: 138 lb 7.205 oz Body Mass Index (BMI) 25.3 Intake & Output: Intake and Output for Last 24 Hours 11/03/22 11/04/22 11/05/22 23:59 23:59 23:59 Intake Total 1999 350 / 350 Balance 1999 350 / 350 Lab / Micro Data Result Diagrams: 11/05/22 04:33 11/05/22 04:33 Labs: Laboratory Results - last 24 hr 11/05/22 04:33: WBC 15.9 H, RBC 3.69 L, Hgb 11.6 L, Hct 35.3 L, MCV 95.7, MCH 31.4, MCHC 32.9, RDW Std Deviation 49.4 H, RDW Coeff of Louis 14.0, Plt Count 236, MPV 10.8, Immature Gran % (Auto) 0.600, Neut % (Auto) 82.1 H, Lymph % (Auto) 12.0 L, [place] % (Auto) 5.0, Eos % (Auto) 0.1, Baso % (Auto) 0.2, Absolute Neuts (auto) 13.0 H, Absolute Lymphs (auto) 1.90, Nucleated RBC % 0 11/05/22 04:33: Sodium 140, Potassium 3.6, Chloride 105, Carbon Dioxide 28.0, Anion Gap 7, BUN 13, Creatinine 0.68, Estim Creat Clear Calc 41.99, Est GFR (MDRD) Af Amer 110, Est GFR (MDRD) Non-Af 91, BUN/Creatinine Ratio 19.0, Glucose 129 H, Calcium 8.5, Total Bilirubin 0.20, AST 7 L, ALT 13, Alkaline Phosphatase 68, Total Protein 5.6 L, Albumin 2.6 L, Globulin 3.0, Albumin/Globulin Ratio 0.9, Free T4 1.56 H Micro: Microbiology 11/05/22 06:00 Urine, Clean Catch Legionella Antigen - Final 11/05/22 06:00 Urine, Clean Catch Streptococcus pneumoniae Antigen (M - Final 11/04/22 20:43 Nasal Secretion SARS-CoV-2 & FLU Antigen (Rapid) - Final Radiography Diagnostic Testing: Radiology Impression Chest CTA 11/04/22 18:10 IMPRESSION: CTA chest examination, without a demonstrated pulmonary embolism or arterial dissection. Right mid and bilateral lower lung airspace consolidation. Electronically Signed: Ruddy Powell MD at 21:24 EST , Physical Exam Narrative Seen and examined. Patient was admitted after endoscopic mucosal resection for hypoxia. She denies URI symptoms, cough, sore throat, shortness of breath prior to the procedure. COVID and flu antigen negative. General: Alert, Oriented x3, Cooperative HEENT: Clotted blood in the anterior nasal cavity. No active bleeding. Small to visible in the nasal cavity. Atraumatic, PERRLA, EOMI, Normocephalic Oral: No Gingival or Mucosal Lesions/ Ulcerations Neck: Supple, No JVD, Negative Carotid Bruits Lungs: Air entry diminished in bilateral lung bases. No crepitation/rhonchi Cardiovascular: Regular rate, Regular Rhythm, Normal S1, Normal S2, No murmurs Abdomen: Bowel Sounds Present, Soft, Non Tender, Non-Distended : No renal angle tenderness. No suprapubic tenderness. Extremities: No edema, Capillary Refill Less than 3 Seconds Skin: No rashes, No breakdown Musculoskeletal: No Tenderness to Palpation of Joints or Extremities Neurological: Cranial nerves II-XII grossly intact, DTR 2+/4 and Symmetrical, Neuro grossly intact Psych/Mental Status: Normal Affect, Appropriate. Assessment & Plan Assessment/Plan (1) Hypoxia: PLAN: Plan This is a 67-year-old female was admitted for hypoxia after the submucosal resection of sinuses and septoplasty by Dr. Audrey. In the postop period she required 4 L of oxygen therefore admitted. CTA chest did not show any pulmonary embolism. She does not have any prior COVID symptoms, flulike symptoms, bronchitis like cough shortness of breath prior to procedure. Chest CTA shows right mid and bilateral lower lung airspace consolidation. Patient was recommended with a ntibiotic treatment Levaquin for 7 days. Continue DuoNeb. Patient has a history of PE and DVT most recent 3 years ago. Has been off Eliquis since Thursday. Resume Eliquis as soon as hemostasis is controlled by surgeon. She has history of tobacco use. Charges/Coding Visit Charges OBSV E&M: 02396 Subsequent observation care L2
--- NOTE | 2022-11-05 13:51 | CASEMGMT ---
Addendum entered by Denia Elizondo 11/05/22 14:21: Received call from Trevon and instructed to give patient portable tank from stock. Portable tank provided to floor nurse with pulse ox. Original Note: RN MELINDA updated that patient will need home oxgyen at discharge. RN MELINDA received script for home oxygen. RN MELINDA in to discuss DME agency's with patient. Patient states no preferences, agencies reviewed with patient and would like [employer]. BASSEM LAWRENCE sent referral to [employer] via [employer] and left message with Trevon from [employer]. CM will remain available for discharge planning.
--- NOTE | 2022-11-07 08:00 | NURSING ---
Message left that patient has two prescriptions here at the hospital that need to be picked up.
== END 2022-11-05 15:49 | disposition home or self-care (01) ==
LOC: PCU 11-05 07:04 → SDC 11-05 08:46 → PCU 11-05 08:46
PROVIDERS: Anesthesiology; Internal Medicine; Admitting Provider Otolaryngology; PCP Family Medicine; Referring Provider Otolaryngology; Visit Provider Otolaryngology
PROC: (CPT 31256; principal; 2022-11-04 08:35)
DX: J32.4 Chronic pansinusitis (principal); E11.9 Type 2 diabetes mellitus without complications; J34.2 Deviated nasal septum; F17.210 Nicotine dependence, cigarettes, uncomplicated; E78.5 Hyperlipidemia, unspecified; Z79.83 Long term (current) use of bisphosphonates; R09.02 Hypoxemia; I10 Essential (primary) hypertension; J34.3 Hypertrophy of nasal turbinates; Z79.01 Long term (current) use of anticoagulants; Z79.899 Other long term (current) drug therapy; E03.9 Hypothyroidism, unspecified; Z79.890 Hormone replacement therapy; Z86.711 Personal history of pulmonary embolism; R06.02 Shortness of breath; Z86.718 Personal history of other venous thrombosis and embolism
CPT/HCPCS: 31256; 31255; 31276; 31288; 30520; 30140; 00160; 36415; 71275; 80048; 80053; 80076; 84439; 84443; 85025; 85027; 85610; 85730; 87428; 87449; 88305; 88311; 93005; 94640; 94762; 96365; 96366; 99218; 99251; J7120; Q9967; A4216; G0378; G0463; J0696; J2405

== ENCOUNTER → 2022-12-22 | Outpatient (CLI) | payer MEDICARE, MEDICAID, SELFPAY | END | disposition home or self-care (01) | LOC: LABSPEC 15:24 | PROVIDERS: PCP Family Medicine; Referring Provider Otolaryngology; Visit Provider Otolaryngology | DX: J32.9 Chronic sinusitis, unspecified (principal) | CPT/HCPCS: 87070; 87077; 87186; 87205 ==

== ENCOUNTER → 2023-03-05 | Outpatient (CLI) | payer MEDICARE, MEDICAID, SELFPAY | END | disposition home or self-care (01) | PROVIDERS: PCP Family Medicine; Referring Provider Otolaryngology; Visit Provider Otolaryngology | DX: J32.9 Chronic sinusitis, unspecified (principal) | CPT/HCPCS: 87070; 87186; 87205 ==

== ENCOUNTER → 2024-04-25 | Outpatient (CLI) | payer MEDICARE, MEDICAID, SELFPAY | END | disposition home or self-care (01) | PROVIDERS: PCP Family Medicine; Referring Provider Otolaryngology; Visit Provider Otolaryngology | DX: J32.8 Other chronic sinusitis (principal) | CPT/HCPCS: 87070; 87077; 87186; 87205 ==

== ENCOUNTER → 2024-05-10 | Outpatient (CLI) | payer MEDICARE, MEDICAID, SELFPAY ==
--- NOTE | 2024-05-10 15:33 | CT_ITS ---
INDICATION: CHRONIC SINUSITIS EXAMINATION: CT SINUSES - CT Sinuses W/O Contrast Injection TECHNIQUE: Helically acquired images were obtained of the paranasal sinuses. The protocol utilizes one or more of the following dose reduction techniques: automated exposure control, adjustment of mA and/or kV according to patient size,and/or use of iterative reconstruction technique. IV Contrast dosage and agent: RADIATION DOSAGE (If Supplied By Facility): CTDIvol = ( 33.06 ) mGy, DLP = ( 776.00 ) mGycm COMPARISON: FINDINGS: FRONTAL SINUSES AND RECESSES: Clear. ETHMOID AIR CELLS: Mild mucosal thickening bilaterally. MAXILLARY SINUSES: Complete opacification of the right maxillary sinus. Bony defects along the medial wall and the floor of the right maxillary sinus and the right side of the hard palate. Mild mucosal thickening in the left maxillary sinus.. Surgical resection of the bilateral ostiomeatal complexes. SPHENOID SINUSES: Clear. ANCILLARY FINDINGS: NASAL TURBINATES: Resected middle turbinates. NASAL SEPTUM: Midline. ORBITS: Unremarkable. VISUALIZED DENTITION: No periodontal osseous erosion. ANTERIOR CRANIAL FOSSA: Unremarkable. CT/Sinus/Facial Bone IMPRESSION: Complete opacification of the right maxillary sinus. Bony defects along the medial wall and the floor of the right maxillary sinus and the right side of the hard palate. Mild mucosal thickening in the left maxillary sinus.. Surgical resection of the bilateral ostiomeatal complexes. Electronically Signed: Brian Ruth DO at 17:30 EDT Reading Location ID and State: [facility] / [place] Tel [phone], Service support ,
== END | disposition home or self-care (01) ==
PROVIDERS: PCP Family Medicine; Referring Provider Otolaryngology; Visit Provider Otolaryngology
DX: J32.9 Chronic sinusitis, unspecified (principal)
CPT/HCPCS: 70486